=== PATIENT | male | born 1980 | race Two or more races ===

== ENCOUNTER 2018-02-20 14:49 | Emergency (ER) | payer MEDICAID ==
[~2018-02-20] VITALS: Ht 180.3 cm; Wt 102.1 kg
[2018-02-20 16:21] LABS: Basophils # (auto) 0 uL; Basophils % (auto) 0.3 % (0.0-2.0); Eosinophils # (auto) 0.4 uL; Eosinophils % (auto) 3.9 % (0.0-7.0); Hematocrit 50.3 % (41.0-53.0); Hemoglobin 17.1 g/dL (13.5-17.5); Lymphocytes % (auto) 20.3 % (10.0-50.0); Mean Corpuscular Hemoglobin 29.6 pg (28.0-32.0); Monocytes # (auto) 0.7 uL; Monocytes % (auto) 6.8 % (0.0-12.0); Neutrophils # (auto) 6.7 uL; Neutrophils % (auto) 68.7 % (37.0-80.0); Nucleated Red Blood Cells % 0.1 %; Platelet Count (auto) 284 10^3/uL (140-450); Red Blood Cells 5.78 10^6/uL (4.5-5.90); Red Cell Distribution Width 13.5 % (11.8-14.3); White Blood Cell 9.7 10^3/uL (4.4-10.8)
[2018-02-20 16:33] LABS: Albumin 3.6 g/dL (3.4-5.0); Calcium 8.5 mg/dL (8.5-10.1); Potassium 3.4 mmol/L (3.5-5.1)
[2018-02-20 16:36] LABS: BUN/Creatinine Ratio 9.9; Bilirubin, Total 0.3 mg/dL (0.2-1.0); Total Protein 7.8 g/dL (6.4-8.2)
[2018-02-20 19:42] VITALS: BP 130/82
== END 2018-02-20 20:08 | disposition home or self-care (01) ==
LOC: ER 14:57
DX: R11.2 Nausea with vomiting, unspecified (principal); R19.7 Diarrhea, unspecified
CPT/HCPCS: 36415; 80053; 85025

== ENCOUNTER 2018-04-20 09:18 | Emergency (ER) | payer MEDICAID ==
[~2018-04-20] VITALS: Ht 180.3 cm; Wt 95.3 kg
[2018-04-20] MEDS ORDERED: cloNIDine HCL 0.1 MG TAB PO ONE (10:00)
[2018-04-20 10:32] VITALS: BP 166/96
== END 2018-04-20 10:32 | disposition home or self-care (01) ==
LOC: ER 09:18
DX: R04.0 Epistaxis (principal)
CPT/HCPCS: 30901

== ENCOUNTER 2019-08-06 19:29 | Inpatient (IN) | payer MEDICAID ==
[~2019-08-06] VITALS: Ht 180.3 cm; Wt 95.3 kg
[2019-08-06] MEDS ORDERED: cloNIDine HCL 0.1 MG TAB PO ONE (20:15)
[2019-08-06] MEDS ORDERED: ONDANSETRON ODT 4 MG TAB PO ONE (20:30)
[2019-08-06 21:36] LABS: Basophils # (auto) 0 10 ^3/uL (0-0.2); Basophils % (auto) 0.4 % (0.0-2.0); Eosinophils # (auto) 0 10 ^3/uL (0-0.8); Eosinophils % (auto) 0.3 % (0.0-7.0); Hematocrit 48.8 % (41.0-53.0); Hemoglobin 16.6 g/dL (13.5-17.5); Lymphocytes % (auto) 19.1 % (10.0-50.0); Mean Corpuscular Hemoglobin 29.6 pg (28.0-32.0); Mean Corpuscular Volume 87.3 fL (80.0-100.0); Monocytes # (auto) 0.4 10 ^3/uL (0-1.3); Monocytes % (auto) 7.8 % (0.0-12.0); Neutrophils # (auto) 3.9 10 ^3/uL (1.6-8.6); Neutrophils % (auto) 72.4 % (37.0-80.0); Platelet Count (auto) 180 10^3/uL (140-450); Red Blood Cells 5.59 10^6/uL (4.5-5.90); Red Cell Distribution Width 13.3 % (11.8-14.3); White Blood Cell 5.4 10^3/uL (4.4-10.8)
[2019-08-06 21:46] LABS: Albumin 3.4 g/dL (3.4-5.0); Calcium 8.5 mg/dL (8.5-10.1); Potassium 3.6 mmol/L (3.5-5.1)
[2019-08-06 21:47] LABS: BUN/Creatinine Ratio 6.7
[2019-08-06 21:50] LABS: Bilirubin, Total 0.2 mg/dL (0.2-1.0); Total Protein 7.6 g/dL (6.4-8.2)
[2019-08-06] MEDS ORDERED: AZITHROMYCIN 500MG/ 250ML 250 ML IV ONE (22:00)
[2019-08-06] MEDS ORDERED: cefTRIAXone 1GM/50ML D5W 50 ML IV ONE (22:00)
[2019-08-06] MEDS ORDERED: SODIUM CHLORIDE 0.9% 1,000 ML IV ONE (22:15)
[2019-08-06 22:19] LABS: CRP High Sensitivity 4.6 mg/dL (< 0.3)
[2019-08-06 22:52] LABS: INR 1.01 (0.9-1.15); Partial Thromboplastin Time 38.6 sec (23.64-32.05)
[2019-08-06] MEDS ORDERED: ASPirin 81 mg TAB PO ONE (23:15)
[2019-08-07 00:04] LABS: Urine Bacteria FEW /hpf (None Seen); Urine Blood Negative /uL (Negative); Urine Hyaline Cast FEW /lpf (0 - 2); Urine Mucus FEW (None Seen); Urine Specific Gravity 1.023 (1.001-1.035); Urine WBC 3 /hpf (0 - 3)
[2019-08-07 00:23] LABS: Alcohol, Urine < 3.0 mg/dL (0-10); Amphetamine Screen, Urine POSITIVE (NEGATIVE); Barbiturate Scree,Urine NEGATIVE (NEGATIVE); Benzodiazephine Screen, Urine NEGATIVE (NEGATIVE); Cannabinoid Screen, Urine NEGATIVE (NEGATIVE); Cocaine Screen, Urine NEGATIVE (NEGATIVE); Opiate Scree,Urine NEGATIVE (NEGATIVE); Phencyclidine Screen, Urine NEGATIVE (NEGATIVE)
[2019-08-07] MEDS ORDERED: ASPirin 81 mg TAB PO ONE (01:30)
[2019-08-07] MEDS ORDERED: ONDANSETRON HCL 4 MG/2 ML VIAL IV PRN (01:30)
[2019-08-07] MEDS ORDERED: MORPHINE SULF INJ 2 MG/ML SYRINGE 1ML IV PRN ×2 (01:30)
[2019-08-07] MEDS ORDERED: NITROGLYCERIN 0.4 MG SL TAB SL PRN (01:30)
[2019-08-07] MEDS ORDERED: AZITHROMYCIN 500MG/ 250ML 250 ML IV SCH (10:00)
[2019-08-07] MEDS ORDERED: LACTULOSE 20Gm/30ML SOLN PO SCH (10:00)
[2019-08-07 13:00] VITALS: BP 159/102
[2019-08-07 13:10] VITALS: BP 159/102
[2019-08-07 17:11] VITALS: BP 159/104
[2019-08-07] MEDS ORDERED: ACETAMINOPHEN 500 MG TAB PO PRN (17:45)
[2019-08-07] MEDS ORDERED: hydrALAZINE HCL 20 MG/ML VL IV PRN (21:15)
[2019-08-07 22:00] VITALS: BP 144/99
== END 2019-08-08 00:31 | disposition home or self-care (01) | DRG 137 ==
LOC: ER 19:29 → TELE 19:30 → TELE-EAST 08-07 14:41
PROVIDERS: ADMIT Internal Medicine; ATTEND Internal Medicine
DX: U07.1 COVID-19 (principal); J96.01 Acute respiratory failure with hypoxia; J12.89 Other viral pneumonia; I10 Essential (primary) hypertension; K40.20 Bilateral inguinal hernia, without obstruction or gangrene, not specified as recurrent; K59.00 Constipation, unspecified; N20.0 Calculus of kidney; K42.9 Umbilical hernia without obstruction or gangrene; M47.9 Spondylosis, unspecified; F15.10 Other stimulant abuse, uncomplicated; K57.30 Diverticulosis of large intestine without perforation or abscess without bleeding; M40.209 Unspecified kyphosis, site unspecified; M46.90 Unspecified inflammatory spondylopathy, site unspecified; Z87.442 Personal history of urinary calculi
CPT/HCPCS: 36415; 36600; 70450; 71045; 74176; 80053; 80307; 81001; 82150; 82728; 82805; 83605; 83615; 83690; 83735; 83880; 84443; 84484; 85025; 85379; 85610; 85730; 86141; 87070; 87804; 87880; 93005; 93970; 96367; 96368; G0378; J0696; Q0162

== ENCOUNTER 2019-08-09 19:07 | Emergency (ER) | payer MEDICAID ==
[~2019-08-09] VITALS: Ht 180.3 cm; Wt 95.3 kg
[2019-08-09 20:01] VITALS: BP 111/87
== END 2019-08-09 21:32 | disposition left against medical advice (07) ==
LOC: ER 19:07
DX: R53.1 Weakness (principal); Z53.21 Procedure and treatment not carried out due to patient leaving prior to being seen by health care provider

== ENCOUNTER 2020-07-24 00:23 | Emergency (ER) | payer MEDICAID ==
[~2020-07-24] VITALS: Ht 180.3 cm; Wt 95.3 kg
[2020-07-24] MEDS ORDERED: NIFEdipine 10 MG CAP PO ONE (00:45)
[2020-07-24 01:57] LABS: Basophils # (auto) 0.1 10 ^3/uL (0-0.2); Basophils % (auto) 1.1 % (0.0-2.0); Eosinophils # (auto) 0.4 10 ^3/uL (0-0.8); Eosinophils % (auto) 3.8 % (0.0-7.0); Hematocrit 46.1 % (41.0-53.0); Hemoglobin 15.8 g/dL (13.5-17.5); Lymphocytes # (auto) 1.8 10 ^3/uL (0.4-5.4); Lymphocytes % (auto) 17.9 % (10.0-50.0); Mean Corpuscular Hemoglobin 29.8 pg (28.0-32.0); Mean Corpuscular Hgb Conc. 34.2 g/dL (32.0-36.0); Mean Corpuscular Volume 87.3 fL (80.0-100.0); Monocytes # (auto) 0.9 10 ^3/uL (0-1.3); Monocytes % (auto) 9.2 % (0.0-12.0); Neutrophils # (auto) 6.8 10 ^3/uL (1.6-8.6); Nucleated Red Blood Cells % 0.1 %; Platelet Count (auto) 238 10^3/uL (140-450); Red Blood Cells 5.28 10^6/uL (4.5-5.90); Red Cell Distribution Width 14.1 % (11.8-14.3)
[2020-07-24 02:15] LABS: Albumin 4.3 g/dL (3.4-5.0); Anion Gap 7 (5-15); Carbon Dioxide 24 mmol/L (21-32); Chloride 106 mmol/L (98-107); Glucose 104 mg/dL (74-106); Magnesium 2.3 mg/dL (1.6-2.6); Potassium 3.9 mmol/L (3.5-5.1); Sodium 137 mmol/L (136-145)
[2020-07-24] MEDS ORDERED: LORazepam 0.5 MG TAB PO ONE (02:15)
[2020-07-24 02:18] LABS: Alanine Aminotransferase 35 U/L (16-61); Aspartate Aminotransferase 31 U/L (15-37); BUN/Creatinine Ratio 17.5; Bilirubin, Total 0.4 mg/dL (0.2-1.0); Blood Urea Nitrogen 18 mg/dL (7-18); GFR African American 103 mL/min; GFR Non-African American 85 mL/min; Total Protein 8.1 g/dL (6.4-8.2)
[2020-07-24 02:20] LABS: Alkaline Phosphatase 99 U/L (45-117)
[2020-07-24] MEDS ORDERED: cloNIDine HCL 0.1 MG TAB PO ONE (02:30)
[2020-07-24 04:20] VITALS: BP 145/99
== END 2020-07-24 04:23 | disposition home or self-care (01) ==
LOC: ER 00:23
DX: F41.9 Anxiety disorder, unspecified (principal); I10 Essential (primary) hypertension; F15.10 Other stimulant abuse, uncomplicated; R42 Dizziness and giddiness; Z87.442 Personal history of urinary calculi
CPT/HCPCS: 36415; 71045; 80053; 83735; 84484; 85025; 85379; 93005

== ENCOUNTER 2021-09-25 06:29 | Emergency (ER) | payer MEDICAID ==
[~2021-09-25] VITALS: Ht 180.3 cm; Wt 100.0 kg
[2021-09-25 06:55] VITALS: BP 177/127
[2021-09-25] MEDS ORDERED: ASPirin 81 mg TAB PO ONE (07:15)
[2021-09-25 07:42] LABS: Basophils # (auto) 0 10 ^3/uL (0-0.2); Basophils % (auto) 0.7 % (0.0-2.0); Eosinophils # (auto) 0.2 10 ^3/uL (0-0.8); Eosinophils % (auto) 3.3 % (0.0-7.0); Hematocrit 43.2 % (41.0-53.0); Hemoglobin 14.8 g/dL (13.5-17.5); Lymphocytes # (auto) 1.7 10 ^3/uL (0.4-5.4); Lymphocytes % (auto) 24.8 % (10.0-50.0); Mean Corpuscular Hemoglobin 30.2 pg (28.0-32.0); Mean Corpuscular Hgb Conc. 34.2 g/dL (32.0-36.0); Mean Corpuscular Volume 88.4 fL (80.0-100.0); Monocytes # (auto) 0.5 10 ^3/uL (0-1.3); Monocytes % (auto) 7.5 % (0.0-12.0); Neutrophils # (auto) 4.3 10 ^3/uL (1.6-8.6); Neutrophils % (auto) 63.7 % (37.0-80.0); Nucleated Red Blood Cells % 0.1 %; Red Blood Cells 4.89 10^6/uL (4.5-5.90); Red Cell Distribution Width 13.8 % (11.8-14.3); White Blood Cell 6.8 10^3/uL (4.4-10.8)
[2021-09-25 08:20] LABS: Albumin 3.3 g/dL (3.4-5.0); Calcium 8.7 mg/dL (8.5-10.1); Potassium 3.6 mmol/L (3.5-5.1)
[2021-09-25 08:22] LABS: BUN/Creatinine Ratio 17.6
[2021-09-25 08:25] LABS: Bilirubin, Total 0.4 mg/dL (0.2-1.0); Total Protein 6.7 g/dL (6.4-8.2)
[2021-09-25] MEDS ORDERED: cloNIDine HCL 0.1 MG TAB PO ONE (08:45)
[2021-09-25] MEDS ORDERED: IOHEXOL 350 MG/ML 100ML IJ ONE (08:47)
== END 2021-09-25 09:47 | disposition home or self-care (01) ==
LOC: ER 06:29
DX: R07.89 Other chest pain (principal); I10 Essential (primary) hypertension; Z87.442 Personal history of urinary calculi
CPT/HCPCS: 36415; 71045; 80053; 83880; 84484; 85025; 93005; 99285; Q9967

== ENCOUNTER 2021-11-02 06:41 | Emergency (ER) | payer MEDICAID ==
[~2021-11-02] VITALS: Ht 180.3 cm; Wt 100.0 kg
[2021-11-02 07:36] LABS: Basophils # (auto) 0.1 10 ^3/uL (0-0.2); Basophils % (auto) 0.8 % (0.0-2.0); Eosinophils # (auto) 0.2 10 ^3/uL (0-0.8); Eosinophils % (auto) 2.1 % (0.0-7.0); Hematocrit 44.3 % (41.0-53.0); Hemoglobin 14.9 g/dL (13.5-17.5); Lymphocytes # (auto) 2.5 10 ^3/uL (0.4-5.4); Lymphocytes % (auto) 34.1 % (10.0-50.0); Mean Corpuscular Hemoglobin 29.3 pg (28.0-32.0); Mean Corpuscular Hgb Conc. 33.6 g/dL (32.0-36.0); Mean Corpuscular Volume 87.1 fL (80.0-100.0); Monocytes # (auto) 0.6 10 ^3/uL (0-1.3); Monocytes % (auto) 7.7 % (0.0-12.0); Neutrophils % (auto) 55.3 % (37.0-80.0); Nucleated Red Blood Cells % 0.1 %; Red Blood Cells 5.08 10^6/uL (4.5-5.90); Red Cell Distribution Width 14.1 % (11.8-14.3); White Blood Cell 7.3 10^3/uL (4.4-10.8)
[2021-11-02 07:59] LABS: Albumin 3.6 g/dL (3.4-5.0); BUN/Creatinine Ratio 18.3; Calcium 8.9 mg/dL (8.5-10.1); Potassium 4.1 mmol/L (3.5-5.1)
[2021-11-02 08:02] LABS: Bilirubin, Total 0.5 mg/dL (0.2-1.0)
[2021-11-02 09:11] VITALS: BP 150/74
== END 2021-11-02 09:24 | disposition home or self-care (01) ==
LOC: ER 06:41
DX: F41.8 Other specified anxiety disorders (principal); F15.10 Other stimulant abuse, uncomplicated; I10 Essential (primary) hypertension
CPT/HCPCS: 36415; 71045; 80053; 83880; 84484; 85025; 93005

== ENCOUNTER 2021-11-05 09:02 | Inpatient (IN) | payer MEDICAID ==
[~2021-11-05] VITALS: Ht 177.8 cm; Wt 102.9 kg
[2021-11-05] MEDS ORDERED: ASPirin 325 MG TAB PO ONE (09:30)
[2021-11-05 10:19] LABS: Basophils # (auto) 0 10 ^3/uL (0-0.2); Basophils % (auto) 0.6 % (0.0-2.0); Eosinophils # (auto) 0.2 10 ^3/uL (0-0.8); Eosinophils % (auto) 2.2 % (0.0-7.0); Hematocrit 47.4 % (41.0-53.0); Hemoglobin 15.5 g/dL (13.5-17.5); Lymphocytes # (auto) 1.8 10 ^3/uL (0.4-5.4); Lymphocytes % (auto) 21.2 % (10.0-50.0); Mean Corpuscular Hemoglobin 28.8 pg (28.0-32.0); Mean Corpuscular Hgb Conc. 32.8 g/dL (32.0-36.0); Monocytes # (auto) 0.6 10 ^3/uL (0-1.3); Monocytes % (auto) 6.6 % (0.0-12.0); Neutrophils % (auto) 69.4 % (37.0-80.0); Red Blood Cells 5.38 10^6/uL (4.5-5.90); Red Cell Distribution Width 14.4 % (11.8-14.3); White Blood Cell 8.6 10^3/uL (4.4-10.8)
[2021-11-05 10:26] LABS: Albumin 3.7 g/dL (3.4-5.0); Calcium 8.6 mg/dL (8.5-10.1); Potassium 4.2 mmol/L (3.5-5.1)
[2021-11-05 10:29] LABS: BUN/Creatinine Ratio 12.5; Bilirubin, Total 0.4 mg/dL (0.2-1.0)
[2021-11-05] MEDS ORDERED: MORPHINE SULFATE 4 MG/ML SYR/VIAL IV ONE (11:00)
[2021-11-05] MEDS ORDERED: ONDANSETRON HCL 4 MG/2 ML VIAL IV ONE (11:00)
[2021-11-05 11:36] LABS: Urine Bacteria NONE SEEN /hpf (None Seen); Urine Blood Negative /uL (Negative); Urine Hyaline Cast FEW /lpf (0 - 2); Urine Mucus FEW (None Seen); Urine Specific Gravity 1.019 (1.001-1.035); Urine Sperm PRESENT /hpf (None Seen); Urine WBC 9 /hpf (0 - 3)
[2021-11-05 11:37] LABS: Alcohol, Urine < 3.0 mg/dL (0-10); Amphetamine Screen, Urine POSITIVE (NEGATIVE); Barbiturate Scree,Urine NEGATIVE (NEGATIVE); Benzodiazephine Screen, Urine NEGATIVE (NEGATIVE); Cannabinoid Screen, Urine NEGATIVE (NEGATIVE); Cocaine Screen, Urine NEGATIVE (NEGATIVE); Opiate Scree,Urine NEGATIVE (NEGATIVE); Phencyclidine Screen, Urine NEGATIVE (NEGATIVE)
[2021-11-05] MEDS ORDERED: NITROGLYCERIN 0.4 MG SL TAB SL PRN (16:15)
[2021-11-05] MEDS ORDERED: MORPHINE SULFATE INJ 2 MG/ml SYRG IV PRN ×2 (16:15)
[2021-11-06 04:50] LABS: Basophils # (auto) 0.1 10 ^3/uL (0-0.2); Basophils % (auto) 0.6 % (0.0-2.0); Eosinophils # (auto) 0.2 10 ^3/uL (0-0.8); Eosinophils % (auto) 2.2 % (0.0-7.0); Hematocrit 44.1 % (41.0-53.0); Hemoglobin 14.6 g/dL (13.5-17.5); Lymphocytes # (auto) 2.8 10 ^3/uL (0.4-5.4); Lymphocytes % (auto) 30.2 % (10.0-50.0); Mean Corpuscular Hgb Conc. 33.2 g/dL (32.0-36.0); Mean Corpuscular Volume 87.4 fL (80.0-100.0); Monocytes # (auto) 0.8 10 ^3/uL (0-1.3); Neutrophils # (auto) 5.3 10 ^3/uL (1.6-8.6); Nucleated Red Blood Cells % 0.1 %; Red Blood Cells 5.04 10^6/uL (4.5-5.90); Red Cell Distribution Width 14.4 % (11.8-14.3); White Blood Cell 9.1 10^3/uL (4.4-10.8)
[2021-11-06 05:14] LABS: Potassium 4.7 mmol/L (3.5-5.1)
[2021-11-06 05:21] LABS: Albumin 3.3 g/dL (3.4-5.0); BUN/Creatinine Ratio 17.3; Bilirubin, Total 0.4 mg/dL (0.2-1.0); Calcium 8.6 mg/dL (8.5-10.1); Total Protein 6.2 g/dL (6.4-8.2)
[2021-11-06] MEDS: ONDANSETRON HCL 4 MG/2 ML VIAL IV PRN ×2 (08:10→22:30)
[2021-11-06] MEDS ORDERED: IBUP800T26 PO (14:22)
[2021-11-06] MEDS ORDERED: MULT-733 PO (14:22)
[2021-11-06] MEDS ORDERED: DICL1GEL50 TOP (14:22)
[2021-11-06] MEDS ORDERED: BACL20TA PO (14:22)
[2021-11-06] MEDS: HYDROmorphone HCL 2 MG/ML VL/or syr IV PRN (22:23)
[2021-11-06 22:40] VITALS: BP 154/118
[2021-11-06] MEDS ORDERED: hydrALAZINE HCL 20 MG/ML VL IV PRN (23:45)
[2021-11-07 06:04] VITALS: BP 145/107
[2021-11-07 06:58] LABS: Cholesterol 134 mg/dL (< 200); Triglycerides 133 mg/dL (< 150)
[2021-11-07 07:01] LABS: HDL Cholesterol 32 mg/dL (40-59); LDL Cholesterol 92 mg/dL (< 100)
[2021-11-07 08:00] VITALS: BP 168/125
[2021-11-07] MEDS: ONDANSETRON HCL 4 MG/2 ML VIAL IV PRN ×2 (10:20→21:46)
[2021-11-07] MEDS: HYDROmorphone HCL 2 MG/ML VL/or syr IV PRN ×2 (10:21→21:47)
[2021-11-07 12:00] VITALS: BP 125/89
[2021-11-07] MEDS ORDERED: PATIENTS OWN MEDICATION (Baclofen 1 TAB) PO SCH (14:00)
[2021-11-07] MEDS: BACLOFEN 10 MG TAB PO SCH ×2 (14:48→21:45)
[2021-11-07] MEDS: FUROSEMIDE 40 MG/4 ML VIAL IV SCH (14:52)
[2021-11-07] MEDS ORDERED: LISINOPRIL 20 MG TAB PO SCH (15:45)
[2021-11-07 16:00] VITALS: BP 128/87
[2021-11-07] MEDS: AZITHROMYCIN 500MG/ 250ML 250 ML IV SCH (16:30)
[2021-11-07] MEDS: CARVEDILOL 3.125 MG TAB PO SCH ×2 (16:30→21:45)
[2021-11-07] MEDS: SACUBITRIL-VALSARTAN 24mg/26mg TAB PO SCH (21:45)
[2021-11-07 22:00] VITALS: BP 114/86
[2021-11-08] VITALS (7 sets, daily range): BP systolic 125–149; BP diastolic 90–108
[2021-11-08 05:30] LABS: BUN/Creatinine Ratio 18.5; Calcium 8.4 mg/dL (8.5-10.1); Potassium 4.1 mmol/L (3.5-5.1)
[2021-11-08] MEDS: BACLOFEN 10 MG TAB PO SCH ×3 (05:43→21:59)
[2021-11-08 09:58] LABS: INR 1.13 (0.9-1.15); Partial Thromboplastin Time 29.6 sec (24.6-33.4)
[2021-11-08] MEDS: SACUBITRIL-VALSARTAN 24mg/26mg TAB PO SCH ×2 (10:36→21:58)
[2021-11-08] MEDS: MULTIPLE VITAMINS W/ MINERALS TAB PO SCH (10:36)
[2021-11-08] MEDS: FUROSEMIDE 40 MG/4 ML VIAL IV SCH (10:37)
[2021-11-08] MEDS: AZITHROMYCIN 500MG/ 250ML 250 ML IV SCH (10:37)
[2021-11-08] MEDS ORDERED: VERAPAMIL 2.5MG/ML INJ 2ML VIAL IV ONE (14:50)
[2021-11-08] MEDS ORDERED: ANGIOMAX 250 MG VIAL IV ONE (14:50)
[2021-11-08] MEDS ORDERED: HEPARIN SODIUM (PORCINE) 5000 UNITS/ML 1ML VIAL ONE (14:50)
[2021-11-08] MEDS ORDERED: fentaNYL CITRATE 100 MCG/2 ML VL ONE (14:50)
[2021-11-08] MEDS ORDERED: MIDAZOLAM HCL 2MG/2ML 2ml VIAL (1mg/ml) ONE (14:50)
[2021-11-08] MEDS ORDERED: SODIUM CHL 0.9% 0 ML ONE (14:51)
[2021-11-08] MEDS ORDERED: LIDOCAINE 2%HCL (LOCAL ANESTH.) INJ 20ML MDV ONE (14:51)
[2021-11-08] MEDS ORDERED: IODIXANOL 320MG/ML 100ML BTL IV ONE ×2 (14:51→15:13)
[2021-11-09 05:00] VITALS: BP 148/112
[2021-11-09] MEDS: BACLOFEN 10 MG TAB PO SCH ×3 (05:29→23:01)
[2021-11-09] MEDS: AZITHROMYCIN 500MG/ 250ML 250 ML IV SCH (08:45)
[2021-11-09] MEDS: FUROSEMIDE 40 MG/4 ML VIAL IV SCH (08:45)
[2021-11-09] MEDS: MULTIPLE VITAMINS W/ MINERALS TAB PO SCH (08:46)
[2021-11-09] MEDS: CARVEDILOL 3.125 MG TAB PO SCH ×2 (08:47→23:02)
[2021-11-09] MEDS: SPIRONOLACTONE 25 MG TAB PO SCH (08:48)
[2021-11-09] MEDS: SACUBITRIL-VALSARTAN 24mg/26mg TAB PO SCH ×2 (08:48→23:00)
[2021-11-09 09:00] VITALS: BP 124/88
[2021-11-09 13:00] VITALS: BP 129/90
[2021-11-09] MEDS ORDERED: CAR3125T PO (15:42)
[2021-11-09] MEDS ORDERED: FURO40TA4 PO (15:42)
[2021-11-09] MEDS ORDERED: SACU1TAB PO (15:42)
[2021-11-09] MEDS ORDERED: SPIR25TA PO (15:42)
[2021-11-09] MEDS ORDERED: EMPA1TAB PO (15:56)
[2021-11-09 17:00] VITALS: BP 138/96
[2021-11-09 22:05] VITALS: BP 129/100
[2021-11-10 04:54] VITALS: BP 135/102
[2021-11-10] MEDS: BACLOFEN 10 MG TAB PO SCH ×2 (06:35→14:03)
[2021-11-10] MEDS: AZITHROMYCIN 500MG/ 250ML 250 ML IV SCH (08:55)
[2021-11-10] MEDS: FUROSEMIDE 40 MG/4 ML VIAL IV SCH (08:55)
[2021-11-10] MEDS: MULTIPLE VITAMINS W/ MINERALS TAB PO SCH (08:56)
[2021-11-10] MEDS: SPIRONOLACTONE 25 MG TAB PO SCH (08:56)
[2021-11-10] MEDS: CARVEDILOL 3.125 MG TAB PO SCH (08:56)
[2021-11-10 09:05] VITALS: BP 146/108
[2021-11-10] MEDS: SACUBITRIL-VALSARTAN 24mg/26mg TAB PO SCH (09:10)
[2021-11-10 12:27] VITALS: BP 121/80
[2021-11-10] MEDS ORDERED: ALPRAZolam 0.5 MG TAB PO PRN (13:00)
[2021-11-10 15:17] VITALS: BP 121/80
[2021-11-10 17:15] VITALS: BP 139/91
== END 2021-11-10 18:47 | disposition home health service (06) | DRG 191 ==
LOC: ER 09:02 → TELE 16:16 → TELE-WESTW 11-06 21:39
PROVIDERS: ADMIT Internal Medicine; ATTEND Internal Medicine
PROC: 4A023N7 Measurement of Cardiac Sampling and Pressure, Left Heart, Percutaneous Approach (ICD-10-PCS; principal; 2021-11-08)
PROC: B211YZZ Fluoroscopy of Multiple Coronary Arteries using Other Contrast (ICD-10-PCS; 2021-11-08)
PROC: B215YZZ Fluoroscopy of Left Heart using Other Contrast (ICD-10-PCS; 2021-11-08)
DX: I25.5 Ischemic cardiomyopathy (principal); I50.23 Acute on chronic systolic (congestive) heart failure; K74.60 Unspecified cirrhosis of liver; I11.0 Hypertensive heart disease with heart failure; E66.9 Obesity, unspecified; I16.1 Hypertensive emergency; F41.9 Anxiety disorder, unspecified; Z20.822 Contact with and (suspected) exposure to COVID-19; I25.10 Atherosclerotic heart disease of native coronary artery without angina pectoris; F15.10 Other stimulant abuse, uncomplicated; Z87.442 Personal history of urinary calculi; Z68.34 Body mass index [BMI] 34.0-34.9, adult; Z87.891 Personal history of nicotine dependence
CPT/HCPCS: 36415; 71046; 80048; 80053; 80061; 80307; 81001; 83880; 84484; 85025; 85610; 85730; 93005; 93306; 93458; 96374; 96375; 99152; G0378; J2250; J2405; Q9967

== ENCOUNTER 2022-02-03 06:10 | Emergency (ER) | payer MEDICAID ==
[~2022-02-03] VITALS: Ht 180.3 cm; Wt 105.0 kg
[~2022-02-03 06:10] MED LIST: BACL20TA PO; CAR3125T PO; DICL1GEL50 TOP; EMPA1TAB PO; FURO40TA4 PO; MULT-733 PO; SACU1TAB PO; SPIR25TA PO
[2022-02-03 06:46] LABS: Basophils # (auto) 0 10 ^3/uL (0-0.2); Basophils % (auto) 0.6 % (0.0-2.0); Eosinophils # (auto) 0.2 10 ^3/uL (0-0.8); Eosinophils % (auto) 3.4 % (0.0-7.0); Hematocrit 47.7 % (41.0-53.0); Hemoglobin 16.6 g/dL (13.5-17.5); Lymphocytes # (auto) 2.6 10 ^3/uL (0.4-5.4); Lymphocytes % (auto) 38.4 % (10.0-50.0); Mean Corpuscular Hemoglobin 30.6 pg (28.0-32.0); Mean Corpuscular Hgb Conc. 34.9 g/dL (32.0-36.0); Mean Corpuscular Volume 87.8 fL (80.0-100.0); Monocytes # (auto) 0.6 10 ^3/uL (0-1.3); Monocytes % (auto) 8.7 % (0.0-12.0); Neutrophils # (auto) 3.3 10 ^3/uL (1.6-8.6); Neutrophils % (auto) 48.9 % (37.0-80.0); Nucleated Red Blood Cells % 0.2 %; Red Blood Cells 5.43 10^6/uL (4.5-5.90); Red Cell Distribution Width 15.1 % (11.8-14.3); White Blood Cell 6.8 10^3/uL (4.4-10.8)
[2022-02-03 07:12] LABS: Albumin 4.2 g/dL (3.4-5.0); BUN/Creatinine Ratio 16.4; Calcium 9.3 mg/dL (8.5-10.1)
[2022-02-03 07:15] LABS: Bilirubin, Total 0.4 mg/dL (0.2-1.0); Total Protein 7.9 g/dL (6.4-8.2)
[2022-02-03] MEDS ORDERED: ONDANSETRON HCL 4 MG/2 ML VIAL IV ONE (09:45)
[2022-02-03] MEDS: MORPHINE SULFATE 4 MG/ML SYR/VIAL IV ONE ×2 (09:56→10:08)
[2022-02-03 10:38] VITALS: BP 120/62
[2022-02-03] MEDS ORDERED: CYCL-837 PO (11:05)
[2022-02-03] MEDS ORDERED: DICL50TA2 PO (11:05)
[2022-02-03] MEDS ORDERED: TRAM50TA2 PO (11:05)
[2022-02-03 11:22] LABS: Urine Bacteria NONE SEEN /hpf (None Seen); Urine Blood Negative /uL (Negative); Urine Specific Gravity 1.018 (1.001-1.035); Urine WBC 1 /hpf (0 - 3)
== END 2022-02-03 12:03 | disposition home or self-care (01) ==
LOC: ER 06:12
DX: M47.816 Spondylosis without myelopathy or radiculopathy, lumbar region (principal); I42.8 Other cardiomyopathies; I10 Essential (primary) hypertension; Z87.442 Personal history of urinary calculi; Z20.822 Contact with and (suspected) exposure to COVID-19
CPT/HCPCS: 36415; 71045; 72100; 80053; 81001; 83880; 84484; 85025; 87426; 93005; 96374; 96375; 99285; J2270; J2405

== ENCOUNTER 2022-03-01 16:43 | Emergency (ER) | payer MEDICAID ==
[~2022-03-01] VITALS: Ht 180.3 cm; Wt 104.4 kg
[~2022-03-01 16:43] MED LIST changes: +CYCL-837 PO; +DICL50TA2 PO; +TRAM50TA2 PO
[2022-03-01 17:00] VITALS: BP 141/106
[2022-03-01 18:03] LABS: Urine Bacteria NONE SEEN /hpf (None Seen); Urine Blood Negative /uL (Negative); Urine Specific Gravity 1.007 (1.001-1.035); Urine WBC <1 /hpf (0 - 3)
[2022-03-01 18:32] LABS: Basophils # (auto) 0 10 ^3/uL (0-0.2); Basophils % (auto) 0.4 % (0.0-2.0); Eosinophils # (auto) 0.2 10 ^3/uL (0-0.8); Eosinophils % (auto) 2.9 % (0.0-7.0); Hematocrit 49.7 % (41.0-53.0); Hemoglobin 16.6 g/dL (13.5-17.5); Lymphocytes # (auto) 2.2 10 ^3/uL (0.4-5.4); Lymphocytes % (auto) 35.2 % (10.0-50.0); Mean Corpuscular Hgb Conc. 33.4 g/dL (32.0-36.0); Mean Corpuscular Volume 89.7 fL (80.0-100.0); Monocytes # (auto) 0.4 10 ^3/uL (0-1.3); Neutrophils # (auto) 3.5 10 ^3/uL (1.6-8.6); Neutrophils % (auto) 54.5 % (37.0-80.0); Nucleated Red Blood Cells % 0.2 %; Red Blood Cells 5.54 10^6/uL (4.5-5.90); Red Cell Distribution Width 14.9 % (11.8-14.3); White Blood Cell 6.4 10^3/uL (4.4-10.8)
[2022-03-01 18:40] LABS: Albumin 3.9 g/dL (3.4-5.0); Calcium 9.3 mg/dL (8.5-10.1); Potassium 3.9 mmol/L (3.5-5.1)
[2022-03-01 18:42] LABS: BUN/Creatinine Ratio 16.7
[2022-03-01 19:01] LABS: Bilirubin, Total 0.4 mg/dL (0.2-1.0); Total Protein 7.3 g/dL (6.4-8.2)
== END 2022-03-01 20:14 | disposition home or self-care (01) ==
LOC: ER 16:43
DX: R42 Dizziness and giddiness (principal); F15.10 Other stimulant abuse, uncomplicated; I42.8 Other cardiomyopathies; I11.0 Hypertensive heart disease with heart failure; I50.9 Heart failure, unspecified; Z87.442 Personal history of urinary calculi
CPT/HCPCS: 36415; 80053; 81001; 82962; 84484; 85025; 93005

== ENCOUNTER 2022-03-18 13:31 | Emergency (ER) | payer MEDICAID ==
[~2022-03-18] VITALS: Ht 180.3 cm; Wt 95.0 kg
[2022-03-18 13:40] VITALS: BP 120/73
[2022-03-18 14:15] LABS: Basophils # (auto) 0 10 ^3/uL (0-0.2); Basophils % (auto) 0.7 % (0.0-2.0); Eosinophils # (auto) 0.4 10 ^3/uL (0-0.8); Eosinophils % (auto) 5.1 % (0.0-7.0); Hematocrit 49.2 % (41.0-53.0); Hemoglobin 16.7 g/dL (13.5-17.5); Lymphocytes % (auto) 27.9 % (10.0-50.0); Mean Corpuscular Hemoglobin 30.9 pg (28.0-32.0); Mean Corpuscular Hgb Conc. 33.9 g/dL (32.0-36.0); Monocytes # (auto) 0.6 10 ^3/uL (0-1.3); Monocytes % (auto) 8.1 % (0.0-12.0); Neutrophils # (auto) 4.2 10 ^3/uL (1.6-8.6); Neutrophils % (auto) 58.2 % (37.0-80.0); Nucleated Red Blood Cells % 0.2 %; Red Cell Distribution Width 13.7 % (11.8-14.3); White Blood Cell 7.1 10^3/uL (4.4-10.8)
[2022-03-18 14:28] LABS: Albumin 3.8 g/dL (3.4-5.0); BUN/Creatinine Ratio 18.5; Calcium 9.2 mg/dL (8.5-10.1); Potassium 4.2 mmol/L (3.5-5.1)
[2022-03-18 14:31] LABS: Bilirubin, Total 0.4 mg/dL (0.2-1.0); Total Protein 7.5 g/dL (6.4-8.2)
[2022-03-18] MEDS ORDERED: LORazepam 0.5 MG TAB PO ONE (19:45)
== END 2022-03-18 23:18 | disposition home or self-care (01) ==
LOC: ER 13:31
DX: R07.89 Other chest pain (principal); F41.9 Anxiety disorder, unspecified; F15.10 Other stimulant abuse, uncomplicated; I10 Essential (primary) hypertension; Z87.442 Personal history of urinary calculi; Z88.6 Allergy status to analgesic agent
CPT/HCPCS: 36415; 71046; 80053; 83880; 84484; 85025; 93005

== ENCOUNTER 2022-07-02 03:14 | Emergency (ER) | payer MEDICAID ==
[~2022-07-02] VITALS: Ht 180.3 cm; Wt 90.9 kg
[2022-07-02 03:16] VITALS: BP 149/109
[2022-07-02 04:04] LABS: Basophils # (auto) 0 10 ^3/uL (0-0.2); Basophils % (auto) 0.6 % (0.0-2.0); Eosinophils # (auto) 0.3 10 ^3/uL (0-0.8); Eosinophils % (auto) 3.7 % (0.0-7.0); Hematocrit 47.2 % (41.0-53.0); Hemoglobin 15.9 g/dL (13.5-17.5); Lymphocytes # (auto) 3.1 10 ^3/uL (0.4-5.4); Lymphocytes % (auto) 43.4 % (10.0-50.0); Mean Corpuscular Hemoglobin 30.5 pg (28.0-32.0); Mean Corpuscular Hgb Conc. 33.8 g/dL (32.0-36.0); Mean Corpuscular Volume 90.3 fL (80.0-100.0); Monocytes # (auto) 0.5 10 ^3/uL (0-1.3); Monocytes % (auto) 6.7 % (0.0-12.0); Neutrophils # (auto) 3.2 10 ^3/uL (1.6-8.6); Neutrophils % (auto) 45.6 % (37.0-80.0); Nucleated Red Blood Cells % 0.2 %; Red Blood Cells 5.22 10^6/uL (4.5-5.90); Red Cell Distribution Width 13.6 % (11.8-14.3); White Blood Cell 7.1 10^3/uL (4.4-10.8)
[2022-07-02 04:15] LABS: INR 0.97 (0.9-1.15); Partial Thromboplastin Time 31.7 sec (24.6-33.4)
[2022-07-02 04:18] LABS: Albumin 3.5 g/dL (3.4-5.0); Calcium 8.3 mg/dL (8.5-10.1); Magnesium 2.3 mg/dL (1.6-2.6); Potassium 3.8 mmol/L (3.5-5.1)
[2022-07-02 04:21] LABS: BUN/Creatinine Ratio 17.5 (10.0-20.0); Bilirubin, Total 0.2 mg/dL (0.2-1.0); Total Protein 7.1 g/dL (6.4-8.2)
[2022-07-02] MEDS ORDERED: KETOROLAC TROMETH 30 MG/ML 1ML VIAL IM ONE (08:00)
== END 2022-07-02 04:16 | disposition left against medical advice (07) ==
LOC: ER 03:14
DX: R07.89 Other chest pain (principal); F15.10 Other stimulant abuse, uncomplicated; I11.0 Hypertensive heart disease with heart failure; I50.9 Heart failure, unspecified; Z79.899 Other long term (current) drug therapy
CPT/HCPCS: 36415; 71045; 80053; 83735; 83880; 84484; 85025; 85610; 85730; 93005

== ENCOUNTER 2022-07-08 07:57 | Inpatient (IN) | payer MEDICAID ==
[~2022-07-08] VITALS: Ht 180.3 cm; Wt 104.2 kg
[~2022-07-08 07:57] MED LIST changes: -DICL1GEL50 TOP; +DICL1GEL73 TOP
[2022-07-08] MEDS ORDERED: ONDANSETRON HCL 4 MG/2 ML VIAL IV ONE (08:30)
[2022-07-08] MEDS ORDERED: ASPirin 81 mg TAB PO ONE (08:30)
[2022-07-08] MEDS: MORPHINE SULFATE INJ 2 MG/ml SYRG IV ONE ×2 (08:30→08:39)
[2022-07-08 09:08] LABS: Basophils # (auto) 0 10 ^3/uL (0-0.2); Basophils % (auto) 0.5 % (0.0-2.0); Eosinophils # (auto) 0.3 10 ^3/uL (0-0.8); Eosinophils % (auto) 3.6 % (0.0-7.0); Hematocrit 48.9 % (41.0-53.0); Hemoglobin 16.5 g/dL (13.5-17.5); Lymphocytes # (auto) 2.6 10 ^3/uL (0.4-5.4); Lymphocytes % (auto) 32.8 % (10.0-50.0); Mean Corpuscular Hemoglobin 30.5 pg (28.0-32.0); Mean Corpuscular Hgb Conc. 33.7 g/dL (32.0-36.0); Mean Corpuscular Volume 90.5 fL (80.0-100.0); Monocytes # (auto) 0.8 10 ^3/uL (0-1.3); Monocytes % (auto) 10.1 % (0.0-12.0); Neutrophils # (auto) 4.2 10 ^3/uL (1.6-8.6); Nucleated Red Blood Cells % 0.1 %; Red Cell Distribution Width 13.8 % (11.8-14.3); White Blood Cell 7.9 10^3/uL (4.4-10.8)
[2022-07-08] MEDS ORDERED: IOHEXOL 350 MG/ML 100ML IJ ONE (10:31)
[2022-07-08] MEDS ORDERED: TEMAZEPAM 15 MG CAP PO PRN (11:45)
[2022-07-08] MEDS ORDERED: HYDROcodone-ACET 5/325MG TAB PO PRN (11:45)
[2022-07-08] MEDS ORDERED: NITROGLYCERIN 0.4 MG SL TAB SL PRN (11:45)
[2022-07-08] MEDS ORDERED: ACETAMINOPHEN 325 MG TAB PO PRN (11:45)
[2022-07-08] MEDS ORDERED: MORPHINE SULFATE INJ 2 MG/ml SYRG IV PRN ×2 (11:45)
[2022-07-08] MEDS ORDERED: ONDANSETRON HCL 4 MG/2 ML VIAL IV PRN (11:45)
[2022-07-08] MEDS ORDERED: DOCUSATE SOD 100 MG CAP PO PRN (11:45)
[2022-07-08] MEDS: ENOXAPARIN SOD 40 MG/0.4 ML SYRINGE SC SCH (13:11)
[2022-07-08 13:50] LABS: Urine Bacteria NONE SEEN /hpf (None Seen); Urine Blood Negative /uL (Negative); Urine WBC 1 /hpf (0 - 3)
[2022-07-08 13:56] LABS: Albumin 3.7 g/dL (3.4-5.0); Calcium 8.6 mg/dL (8.5-10.1); Magnesium 2.6 mg/dL (1.6-2.6); Potassium 4.1 mmol/L (3.5-5.1)
[2022-07-08 14:00] LABS: BUN/Creatinine Ratio 13.9 (10.0-20.0); Bilirubin, Total 0.4 mg/dL (0.2-1.0); Total Protein 7.5 g/dL (6.4-8.2)
[2022-07-08 14:10] LABS: Alcohol, Urine < 3.0 mg/dL (0-10); Amphetamine Screen, Urine POSITIVE (NEGATIVE); Barbiturate Scree,Urine NEGATIVE (NEGATIVE); Benzodiazephine Screen, Urine NEGATIVE (NEGATIVE); Cannabinoid Screen, Urine NEGATIVE (NEGATIVE); Cocaine Screen, Urine NEGATIVE (NEGATIVE); Opiate Scree,Urine NEGATIVE (NEGATIVE); Phencyclidine Screen, Urine NEGATIVE (NEGATIVE)
[2022-07-08 16:36] VITALS: BP 134/97
[2022-07-08 16:38] VITALS: BP 134/92
[2022-07-08 17:00] VITALS: BP 134/92
[2022-07-08] MEDS: SACUBITRIL-VALSARTAN 24mg/26mg TAB PO SCH (21:15)
[2022-07-08] MEDS: CARVEDILOL 3.125 MG TAB PO SCH (21:16)
[2022-07-08 22:00] VITALS: BP 136/88
[2022-07-09 05:00] VITALS: BP 126/80
[2022-07-09 06:22] LABS: Basophils # (auto) 0 10 ^3/uL (0-0.2); Basophils % (auto) 0.6 % (0.0-2.0); Eosinophils # (auto) 0.4 10 ^3/uL (0-0.8); Eosinophils % (auto) 5.5 % (0.0-7.0); Hematocrit 47.9 % (41.0-53.0); Hemoglobin 16.2 g/dL (13.5-17.5); Lymphocytes % (auto) 39.1 % (10.0-50.0); Mean Corpuscular Hemoglobin 30.7 pg (28.0-32.0); Mean Corpuscular Hgb Conc. 33.9 g/dL (32.0-36.0); Mean Corpuscular Volume 90.5 fL (80.0-100.0); Monocytes # (auto) 0.8 10 ^3/uL (0-1.3); Monocytes % (auto) 10.5 % (0.0-12.0); Neutrophils # (auto) 3.4 10 ^3/uL (1.6-8.6); Neutrophils % (auto) 44.3 % (37.0-80.0); Nucleated Red Blood Cells % 0.6 %; Red Blood Cells 5.29 10^6/uL (4.5-5.90); Red Cell Distribution Width 13.6 % (11.8-14.3); White Blood Cell 7.7 10^3/uL (4.4-10.8)
[2022-07-09 09:00] VITALS: BP 138/84
[2022-07-09] MEDS: SACUBITRIL-VALSARTAN 24mg/26mg TAB PO SCH (09:42)
[2022-07-09] MEDS: CARVEDILOL 3.125 MG TAB PO SCH (09:44)
[2022-07-09] MEDS: ENOXAPARIN SOD 40 MG/0.4 ML SYRINGE SC SCH (09:45)
[2022-07-09] MEDS ORDERED: SPIRONOLACTONE 25 MG TAB PO SCH (10:00)
[2022-07-09 12:35] VITALS: BP 149/78
[2022-07-09 13:00] VITALS: BP 142/91
== END 2022-07-09 14:30 | disposition home or self-care (01) | DRG 205 ==
LOC: ER 07:57 → TELE 11:46 → TELE-CENTR 16:15
PROVIDERS: ADMIT Nurse Practitioner; ATTEND Nurse Practitioner
DX: I42.9 Cardiomyopathy, unspecified (principal); I50.23 Acute on chronic systolic (congestive) heart failure; F15.10 Other stimulant abuse, uncomplicated; I11.0 Hypertensive heart disease with heart failure; R07.9 Chest pain, unspecified; K80.20 Calculus of gallbladder without cholecystitis without obstruction; Z79.899 Other long term (current) drug therapy; Z87.442 Personal history of urinary calculi
CPT/HCPCS: 36415; 71045; 71275; 80053; 80307; 81001; 83735; 83880; 84484; 85025; 85379; 93005; 96374; G0378; J2405

== ENCOUNTER 2022-10-11 05:56 | Emergency (ER) | payer MEDICAID ==
[~2022-10-11] VITALS: Ht 180.3 cm; Wt 104.4 kg
[2022-10-11] MEDS ORDERED: MECLIZINE HCL 25 MG TAB PO ONE (06:45)
[2022-10-11] MEDS ORDERED: ONDANSETRON ODT 4 MG TAB PO ONE (06:45)
[2022-10-11 07:30] LABS: Basophils # (auto) 0.1 10 ^3/uL (0-0.2); Basophils % (auto) 0.6 % (0.0-2.0); Eosinophils # (auto) 0.2 10 ^3/uL (0-0.8); Eosinophils % (auto) 2.8 % (0.0-7.0); Hematocrit 44.1 % (41.0-53.0); Hemoglobin 15.1 g/dL (13.5-17.5); Lymphocytes % (auto) 25.9 % (10.0-50.0); Mean Corpuscular Hemoglobin 30.3 pg (28.0-32.0); Mean Corpuscular Hgb Conc. 34.3 g/dL (32.0-36.0); Mean Corpuscular Volume 88.6 fL (80.0-100.0); Monocytes # (auto) 0.7 10 ^3/uL (0-1.3); Monocytes % (auto) 8.5 % (0.0-12.0); Neutrophils # (auto) 4.9 10 ^3/uL (1.6-8.6); Neutrophils % (auto) 62.2 % (37.0-80.0); Nucleated Red Blood Cells % 0.1 %; Red Blood Cells 4.98 10^6/uL (4.5-5.90); Red Cell Distribution Width 13.4 % (11.8-14.3); White Blood Cell 7.8 10^3/uL (4.4-10.8)
[2022-10-11 07:34] LABS: INR 1.04 (0.9-1.15); Partial Thromboplastin Time 31.6 SEC (24.5-34.5); Prothrombin Time 10.9 sec (9.3-11.8)
[2022-10-11 07:41] VITALS: BP 146/103; PULSE 64; RESP 16; TEMP 98.6; O2SAT 96
[2022-10-11 08:02] LABS: Alanine Aminotransferase 22 U/L (7-40); Albumin 4.1 g/dL (3.2-4.8); Alkaline Phosphatase 84 U/L (46-116); Anion Gap 4.2 (5-15); Aspartate Aminotransferase 15 U/L (13-40); BUN/Creatinine Ratio 12.5 (10.0-20.0); Blood Urea Nitrogen 13 mg/dL (9-23); Calcium 9.4 mg/dL (8.7-10.4); Carbon Dioxide 28.8 mmol/L (20-30); Chloride 106 mmol/L (98-107); Glucose 116 mg/dL (74-106); Potassium 3.6 mmol/L (3.5-5.1); Sodium 139 mmol/L (136-145)
[2022-10-11 08:03] LABS: Bilirubin, Total 0.5 mg/dL (0.2-1.0); Total Protein 6.6 g/dL (5.7-8.2)
[2022-10-11] MEDS ORDERED: FUR20T GT (08:30)
[2022-10-11] MEDS ORDERED: SACU1TAB PO (08:30)
[2022-10-11] MEDS ORDERED: ZOFR4T PO (08:30)
[2022-10-11] MEDS ORDERED: EMPA1TAB PO (08:30)
[2022-10-11] MEDS ORDERED: SPIR25TA8 PO (08:30)
[2022-10-11] MEDS ORDERED: MECL1TAB31 PO (08:30)
[2022-10-11] MEDS ORDERED: CARV3.1240 PO (08:30)
== END 2022-10-11 08:39 | disposition home or self-care (01) ==
LOC: ER 05:56
DX: R42 Dizziness and giddiness (principal); I11.0 Hypertensive heart disease with heart failure; I50.9 Heart failure, unspecified; E11.9 Type 2 diabetes mellitus without complications
CPT/HCPCS: 36415; 70450; 80053; 84484; 85025; 85610; 85730; 99284; J8597; Q0162

== ENCOUNTER 2022-12-16 08:15 | Inpatient (IN) | payer MEDICAID ==
[~2022-12-16] VITALS: Ht 180.3 cm; Wt 93.5 kg
[~2022-12-16 08:15] MED LIST changes: +CARV3.1240 PO; +FUR20T GT; +MECL1TAB31 PO; +SPIR25TA8 PO; +ZOFR4T PO
[2022-12-16 09:20] LABS: Urine Bacteria NONE SEEN /hpf (None Seen); Urine Blood Negative /uL (Negative); Urine Clarity Clear (Clear); Urine Mucus FEW (None Seen); Urine Protein, UAD Negative (Negative); Urine Specific Gravity 1.012 (1.001-1.035); Urine Urobilinogen Normal (Negative); Urine WBC 1 /hpf (0 - 3)
[2022-12-16 09:22] LABS: Basophils # (auto) 0.1 10 ^3/uL (0-0.2); Basophils % (auto) 0.7 % (0.0-2.0); Eosinophils # (auto) 0.1 10 ^3/uL (0-0.8); Eosinophils % (auto) 1.1 % (0.0-7.0); Hematocrit 45.6 % (41.0-53.0); Lymphocytes # (auto) 1.9 10 ^3/uL (0.4-5.4); Mean Corpuscular Hemoglobin 30.1 pg (28.0-32.0); Mean Corpuscular Hgb Conc. 32.9 g/dL (32.0-36.0); Mean Corpuscular Volume 91.4 fL (80.0-100.0); Monocytes # (auto) 0.5 10 ^3/uL (0-1.3); Monocytes % (auto) 7.2 % (0.0-12.0); Neutrophils # (auto) 4.8 10 ^3/uL (1.6-8.6); Nucleated Red Blood Cells % 0.1 %; Red Blood Cells 4.98 10^6/uL (4.5-5.90); Red Cell Distribution Width 14.7 % (11.8-14.3); White Blood Cell 7.4 10^3/uL (4.4-10.8)
[2022-12-16 09:27] LABS: Urine Color Yellow (Yellow)
[2022-12-16 09:38] LABS: Alanine Aminotransferase 39 U/L (7-40); Alkaline Phosphatase 91 U/L (46-116); Anion Gap 6 (5-15); Aspartate Aminotransferase 36 U/L (13-40); BUN/Creatinine Ratio 11.9 (10.0-20.0); Bilirubin, Total 0.6 mg/dL (0.2-1.0); Blood Urea Nitrogen 16 mg/dL (9-23); Carbon Dioxide 29 mmol/L (20-30); Chloride 107 mmol/L (98-107); Glucose 91 mg/dL (74-106); Potassium 4.3 mmol/L (3.5-5.1); Sodium 142 mmol/L (136-145)
[2022-12-16 09:39] LABS: Total Protein 6.5 g/dL (5.7-8.2)
[2022-12-16] MEDS ORDERED: ENOXAPARIN SOD 120 MG/0.8 ML SYRINGE SC ONE (10:45)
[2022-12-16] MEDS ORDERED: IOHEXOL 350 MG/ML 100ML IJ ONE (10:57)
[2022-12-16] MEDS ORDERED: ONDANSETRON HCL 4 MG/2 ML VIAL IV PRN (13:15)
[2022-12-16] MEDS ORDERED: NITROGLYCERIN 0.4 MG SL TAB SL PRN (13:15)
[2022-12-16] MEDS ORDERED: MORPHINE SULFATE INJ 2 MG/ml SYRG IV PRN (13:15)
[2022-12-16] MEDS ORDERED: DOCUSATE SOD 100 MG CAP PO PRN (13:15)
[2022-12-16] MEDS ORDERED: ACETAMINOPHEN 325 MG TAB PO PRN (13:15)
[2022-12-16] MEDS ORDERED: TEMAZEPAM 15 MG CAP PO PRN (13:15)
[2022-12-16] MEDS ORDERED: HYDROcodone-ACET 5/325MG TAB PO PRN (13:15)
[2022-12-16 17:48] VITALS: PULSE 54; RESP 19; O2SAT 96
[2022-12-16] MEDS: hydrALAZINE HCL 20 MG/ML VL IV PRN (18:06)
[2022-12-16 21:44] VITALS: PULSE 105; RESP 23; O2SAT 96
[2022-12-17] VITALS (8 sets, daily range): BP systolic 132–160; BP diastolic 90–118; PULSE 62–108; RESP 18–22; TEMP 97.2–98; O2SAT 94–98
[2022-12-17 04:52] LABS: Basophils # (auto) 0 10 ^3/uL (0-0.2); Basophils % (auto) 0.4 % (0.0-2.0); Eosinophils # (auto) 0.2 10 ^3/uL (0-0.8); Eosinophils % (auto) 2.6 % (0.0-7.0); Hematocrit 45.1 % (41.0-53.0); Hemoglobin 15.1 g/dL (13.5-17.5); Lymphocytes # (auto) 2.1 10 ^3/uL (0.4-5.4); Lymphocytes % (auto) 28.3 % (10.0-50.0); Mean Corpuscular Hemoglobin 30.5 pg (28.0-32.0); Mean Corpuscular Hgb Conc. 33.4 g/dL (32.0-36.0); Mean Corpuscular Volume 91.2 fL (80.0-100.0); Monocytes # (auto) 0.6 10 ^3/uL (0-1.3); Monocytes % (auto) 7.5 % (0.0-12.0); Neutrophils # (auto) 4.5 10 ^3/uL (1.6-8.6); Neutrophils % (auto) 61.2 % (37.0-80.0); Nucleated Red Blood Cells % 0.1 %; Red Blood Cells 4.94 10^6/uL (4.5-5.90); Red Cell Distribution Width 14.3 % (11.8-14.3); White Blood Cell 7.4 10^3/uL (4.4-10.8)
[2022-12-17 05:11] LABS: Alanine Aminotransferase 39 U/L (7-40); Albumin 3.9 g/dL (3.2-4.8); Alkaline Phosphatase 85 U/L (46-116); Anion Gap 7 (5-15); Aspartate Aminotransferase 32 U/L (13-40); BUN/Creatinine Ratio 13.1 (10.0-20.0); Blood Urea Nitrogen 14 mg/dL (9-23); Calcium 9.2 mg/dL (8.5-10.1); Carbon Dioxide 25 mmol/L (20-30); Chloride 107 mmol/L (98-107); Glucose 128 mg/dL (74-106); Sodium 139 mmol/L (136-145)
[2022-12-17 05:12] LABS: Bilirubin, Total 0.6 mg/dL (0.2-1.0); Total Protein 6.4 g/dL (5.7-8.2)
[2022-12-17] MEDS ORDERED: FUROSEMIDE 40 MG/4 ML VIAL IV ONE (09:45)
[2022-12-17] MEDS: ENOXAPARIN SOD 40 MG/0.4 ML SYRINGE SC SCH (10:00)
[2022-12-17] MEDS: NIFEdipine ER 30 MG TAB PO SCH (11:47)
[2022-12-17] MEDS: SPIRONOLACTONE 25 MG TAB PO SCH (11:48)
[2022-12-17] MEDS: SACUBITRIL-VALSARTAN 24mg/26mg TAB PO SCH (11:48)
[2022-12-17] MEDS: PANTOPRAZOLE 40 MG/10 ML VIAL INJ IV SCH (11:51)
[2022-12-17] MEDS: hydrALAZINE HCL 20 MG/ML VL IV PRN (12:33)
[2022-12-17] MEDS: FUROSEMIDE 40 MG/4 ML VIAL IV SCH (17:43)
[2022-12-18] VITALS (7 sets, daily range): BP systolic 102–122; BP diastolic 56–122; PULSE 90–107; RESP 18–22; TEMP 97.4–98.5; O2SAT 90–98
[2022-12-18] MEDS: FUROSEMIDE 40 MG/4 ML VIAL IV SCH ×2 (05:25→17:37)
[2022-12-18] MEDS: NIFEdipine ER 30 MG TAB PO SCH (09:19)
[2022-12-18] MEDS: SACUBITRIL-VALSARTAN 24mg/26mg TAB PO SCH (09:19)
[2022-12-18] MEDS: PANTOPRAZOLE 40 MG/10 ML VIAL INJ IV SCH (09:19)
[2022-12-18] MEDS: SPIRONOLACTONE 25 MG TAB PO SCH (09:20)
[2022-12-18] MEDS: ENOXAPARIN SOD 40 MG/0.4 ML SYRINGE SC SCH (09:20)
[2022-12-19 05:00] VITALS: BP 101/64; PULSE 98; RESP 22; TEMP 98; O2SAT 92
[2022-12-19 06:10] LABS: Chloride 104 mmol/L (98-107); Potassium 3.9 mmol/L (3.5-5.1); Sodium 138 mmol/L (136-145)
[2022-12-19 06:11] LABS: Anion Gap 9 (5-15); Calcium 9.3 mg/dL (8.7-10.4); Carbon Dioxide 25 mmol/L (20-30)
[2022-12-19] MEDS: FUROSEMIDE 40 MG/4 ML VIAL IV SCH (06:12)
[2022-12-19 06:16] LABS: BUN/Creatinine Ratio 17.5 (10.0-20.0); Blood Urea Nitrogen 21 mg/dL (9-23); Glucose 122 mg/dL (74-106)
[2022-12-19 08:00] VITALS: PULSE 92; RESP 18; O2SAT 98
[2022-12-19 08:19] VITALS: BP 130/78; PULSE 97; RESP 20; TEMP 98.9; O2SAT 97
[2022-12-19] MEDS: PANTOPRAZOLE 40 MG/10 ML VIAL INJ IV SCH (08:54)
[2022-12-19] MEDS: SPIRONOLACTONE 25 MG TAB PO SCH (08:56)
[2022-12-19] MEDS: ENOXAPARIN SOD 40 MG/0.4 ML SYRINGE SC SCH (08:57)
[2022-12-19] MEDS ORDERED: METOPROLOL SUCCINATE XL 50 MG TAB PO SCH (10:00)
[2022-12-19] MEDS ORDERED: SACUBITRIL-VALSARTAN 24mg/26mg TAB PO SCH (10:00)
[2022-12-19 13:00] VITALS: BP 111/79; PULSE 88; RESP 18; TEMP 98.5; O2SAT 95
[2022-12-19] MEDS ORDERED: METO-6 PO (13:35)
[2022-12-19 16:49] VITALS: BP 130/78; PULSE 97; RESP 18; TEMP 36.9; O2SAT 97
[2022-12-19 17:09] VITALS: BP 120/85; PULSE 64; RESP 20; TEMP 97.5; O2SAT 97
== END 2022-12-19 18:11 | disposition home or self-care (01) | DRG 194 ==
LOC: ER 08:15 → TELE 13:17 → TELE-WESTW 22:36 → TELE 23:57 → TELE-WESTW 12-17 05:30
PROVIDERS: ADMIT Nurse Practitioner; ATTEND Nurse Practitioner
DX: I11.0 Hypertensive heart disease with heart failure (principal); I42.8 Other cardiomyopathies; I25.10 Atherosclerotic heart disease of native coronary artery without angina pectoris; I50.23 Acute on chronic systolic (congestive) heart failure; I07.1 Rheumatic tricuspid insufficiency; F15.10 Other stimulant abuse, uncomplicated; Z87.442 Personal history of urinary calculi; Z83.3 Family history of diabetes mellitus; Z79.84 Long term (current) use of oral hypoglycemic drugs; Z79.899 Other long term (current) drug therapy; Z91.148 Patient's other noncompliance with medication regimen for other reason
CPT/HCPCS: 36415; 71045; 71275; 80048; 80053; 81001; 83880; 84484; 85025; 85379; 93005; 93306; C9113; G0378

== ENCOUNTER 2023-03-03 03:59 | Emergency (ER) | payer MEDICAID ==
[~2023-03-03] VITALS: Ht 180.3 cm; Wt 103.1 kg
[~2023-03-03 03:59] MED LIST changes: -CAR3125T PO; -CARV3.1240 PO; +METO-6 PO; -SPIR25TA PO
[2023-03-03 04:05] VITALS: BP 118/73; RESP 18; O2SAT 97
[2023-03-03 04:41] LABS: Chloride 106 mmol/L (98-107); Potassium 4.4 mmol/L (3.5-5.1); Sodium 137 mmol/L (136-145)
[2023-03-03 04:42] LABS: Anion Gap 4 (5-15); Carbon Dioxide 27 mmol/L (20-30)
[2023-03-03 04:43] LABS: Calcium 9.1 mg/dL (8.7-10.4)
[2023-03-03 04:44] LABS: Basophils # (auto) 0 10 ^3/uL (0-0.2); Basophils % (auto) 0.6 % (0.0-2.0); Eosinophils # (auto) 0.5 10 ^3/uL (0-0.8); Eosinophils % (auto) 7.2 % (0.0-7.0); Hematocrit 45.5 % (41.0-53.0); Hemoglobin 15.1 g/dL (13.5-17.5); Lymphocytes # (auto) 2.7 10 ^3/uL (0.4-5.4); Lymphocytes % (auto) 36.8 % (10.0-50.0); Mean Corpuscular Hemoglobin 29.8 pg (28.0-32.0); Mean Corpuscular Hgb Conc. 33.2 g/dL (32.0-36.0); Mean Corpuscular Volume 89.7 fL (80.0-100.0); Monocytes # (auto) 0.8 10 ^3/uL (0-1.3); Monocytes % (auto) 10.1 % (0.0-12.0); Neutrophils # (auto) 3.4 10 ^3/uL (1.6-8.6); Neutrophils % (auto) 45.3 % (37.0-80.0); Nucleated Red Blood Cells % 0.1 %; Red Blood Cells 5.07 10^6/uL (4.5-5.90); Red Cell Distribution Width 14.9 % (11.8-14.3); White Blood Cell 7.5 10^3/uL (4.4-10.8)
[2023-03-03 04:47] LABS: BUN/Creatinine Ratio 16.4 (10.0-20.0); Blood Urea Nitrogen 19 mg/dL (9-23); Glucose 74 mg/dL (74-106)
[2023-03-03 07:17] VITALS: PULSE 97
[2023-03-03] MEDS ORDERED: traMADol HCL 50 MG TAB PO ONE (07:30)
== END 2023-03-03 07:55 | disposition left against medical advice (07) ==
LOC: ER 03:59
DX: R07.89 Other chest pain (principal); F15.10 Other stimulant abuse, uncomplicated; I11.0 Hypertensive heart disease with heart failure; I50.9 Heart failure, unspecified; Z87.442 Personal history of urinary calculi
CPT/HCPCS: 36415; 71045; 80048; 83880; 84484; 85025; 93005

== ENCOUNTER 2024-02-08 12:08 | Emergency (ER) | payer MEDICAID ==
[~2024-02-08] VITALS: Ht 180.3 cm; Wt 96.0 kg
[~2024-02-08 12:08] MED LIST changes: -FUR20T GT; +FURO20TA4 GT; +MECL12.586 PO; -MECL1TAB31 PO
--- NOTE | 2024-02-08 12:38 | ED.PDOC ---
SOB-HPI HPI Comments 43Y M with PMHx CHF and HTN presents to ED for chief complaint SOB x3days. Additional symptoms include cough and n/v/d. Pt has been taking AlkaSeltzer at home. Per pt, he ran out of his Lasix and Carvedilol because the medications fell out of his backpack. Pt has not taken Lasix for 2 weeks. Chief Complaint: Shortness of Breath Time Seen by MD: 12:20 Primary Care Provider: UNKNOWN Reviewed notes: Nurses Notes, Medications, Allergies Information Source: Patient Mode of Arrival: Ambulatory Severity: Moderate Timing: Days Duration: Since onset Context: At Rest PE Risk Factors: None History of: CHF Modifying Factors: Nothing Associated Signs and Symptoms: Cough, Other Past Medical History PAST MEDICAL HISTORY: CHF, Gallstones, HTN, Kidney Stones Surgical History: Denies all surgeries Family History Family History: Family hx of DM Social History Smoker: Non-Smoker Alcohol: Denies ETOH Use Drugs: Marijuana, Methamphetamine Lives In: Home Constitutional: denies: chills, diaphoresis, fatigue, fever, malaise, sweats, weakness, others EENTM: denies: blurred vision, double vision, ear bleeding, ear discharge, ear drainage, ear pain, ear ringing, eye pain, eye redness, hearing loss, mouth pain, mouth swelling, nasal discharge, nose bleeding, nose congestion, nose pain, photophobia, tearing, throat pain, throat swelling, voice changes, others Respiratory: reports: cough, shortness of breath; denies: hemoptysis, orthopnea, SOB at rest, SOB with excertion, stridor, wheezing, others Cardiovascular: denies: chest pain, dizzy spells, diaphoresis, Dyspnea on exertion, edema, irregular heart beat, left arm pain, lightheadedness, pal pitations, PND, syncope, others Gastrointestinal: reports: diarrhea, nausea, vomiting; denies: abdomen distended, abdominal pain, blood streaked bowels, constipated, dysphagia, difficulty swallowing, hematemesis, melena, poor appetite, poor fluid intake, rectal bleeding, rectal pain, others Genitourinary: denies: burning, dysuria, flank pain, frequency, hematuria, incontinence, penile discharge, penile sore, pain, testicle pain, testicle swelling, urgency, others Neurological: denies: dizziness, fainting, headache, left sided numbness, left sided weakness, numbness, paresthesia, pre-existing deficit, right sided numbness, right sided weakness, seizure, speech problems, tingling, tremors, weakness, others Musculoskeletal: denies: back pain, gout, joint pain, joint swelling, muscle pain, muscle stiffness, neck pain, others Integumetry: denies: bruises, change in color, change in hair/nails, dryness, laceration, lesions, lumps, rash, wounds, others Allergic/Immunocompromised: denies: Difficulty Healing, Frequent Infections, Hives, Itching, others Hematologic/Lymphatic: denies: anemia, blood clots, easy bleeding, easy bruising, swollen glands, others Endocrine: denies: excessive hunger, excessive sweating, excessive thirst, excessive urination, flushing, intolerance to cold, intolerance to heat, unexplained weight gain, unexplained weight loss, others Psychiatric: denies: anxiety, bipolar disorder, depression, hopeless, panic disorder, schizophrenia, sleepless, suicidal, others All Other Systems: Reviewed and Negative Physical Exam General Appearance: No Apparent Distress, Normal HEENT: Normal ENT Inspection, Pharynx Normal, TMs Normal Neck: Full Range of Motion, Non-Tender, Normal, Normal Inspection Respiratory: Chest Non-Tender, Lungs Clear, No Accessory Muscle Use, No Respiratory Distress, Normal Breath Sounds Cardiovascular: No Edema, No JVD, No Murmur, No Gallop, Normal Peripheral Pulses, Regular Rate/Rhythm Breast Exam: Deferred Gastrointestinal: No Organomegaly, Non Tender, No Pulsatile Mass, Normal Bowel Sounds, Soft Genitalia: Deferred Pelvic: Deferred Rectal: Deferred Extremities: No calf tenderness, Normal capillary refill, Normal inspection, Normal range of motion, Non-tender, No pedal edema Musculoskeletal : Apperance: Normal Neurologic: Alert, dethistler operator II-XII nml as Tested, No Motor Deficits, Normal Affect, Normal Mood, No Sensory Deficits Cerebellar Function: NOT DONE Reflexes: NOT DONE Skin: Dry, Normal Color, Warm Lymphatic: No Adenopathy Was a procedure done? Was a procedure done?: No Differential Dx Differential Diagnosis: Bronchitis, CHF, Pneumonia, URI X-Ray, Labs, Meds, VS Vital Signs Date Time Temp Pulse Resp B/P (MAP) Pulse Ox O2 Delivery O2 Flow Rate FiO2 12/28/24 18:19 97.9 92 16 125/91 (102) 99 97.9 02/08/24 17:07 114/78 02/08/24 17:00 99 16 99 Room Air* 0 21 02/08/24 17:00 98.1 99 16 114/78 (90) 99 98.1 02/08/24 12:21 20 100 Room Air* 0 21 02/08/24 12:17 106 02/08/24 12:16 97.9 74 20 157/99 (118) 100 Lab Test 02/08/24 15:56 02/08/24 14:49 02/08/24 12:49 Range/Units Troponin I High Sensitivity 28 27 29 </=54 ng/L White Blood Count 8.0 4.4-10.8 10^3/uL Red Blood Count 5.24 4.5-5.90 10^6/uL Hemoglobin 16.6 13.5-17.5 g/dL Hematocrit 49.5 41.0-53.0 % Mean Corpuscular Volume 94.6 80.0-100.0 fL Mean Corpuscular Hemoglobin 31.7 28.0-32.0 pg Mean Corpuscular Hemoglobin Concent 33.5 32.0-36.0 g/dL Red Cell Distribution Width 14.1 11.8-14.3 % Platelet Count 188 140-450 10^3/uL Mean Platelet Volume 8.8 6.9-10.8 fL Neutrophils (%) (Auto) 79.3 37.0-80.0 % Lymphocytes (%) (Auto) 12.6 10.0-50.0 % Monocytes (%) (Auto) 6.1 0.0-12.0 % Eosinophils (%) (Auto) 1.6 0.0-7.0 % Basophils (%) (Auto) 0.4 0.0-2.0 % Neutrophils # (Auto) 6.3 1.6-8.6 10 ^3/uL Lymphocytes # (Auto) 1.0 0.4-5.4 10 ^3/uL Monocytes # (Auto) 0.5 0-1.3 10 ^3/uL Eosinophils # (Auto) 0.1 0-0.8 10 ^3/uL Basophils # (Auto) 0 0-0.2 10 ^3/uL Nucleated Red Blood Cells 0.1 % Sodium Level 140 136-145 mmol/L Potassium Level 4.3 3.5-5.1 mmol/L Chloride Level 107 98-107 mmol/L Carbon Dioxide Level 25 20-31 mmol/L Anion Gap 8 5-15 Blood Urea Nitrogen 19 9-23 mg/dL Creatinine 1.33 H 0.700-1.30 mg/dL Glomerular Filtration Rate Calc 68 >90 mL/min BUN/Creatinine Ratio 14.3 10.0-20.0 Serum Glucose 137 H 74-106 mg/dL Calcium Level 9.6 8.7-10.4 mg/dL B-Type Natriuretic Peptide 2906.34 0-100 pg/mL Current Medications Medications (Trade) Dose Ordered Sig/Wesley Route Start Time Stop Time Status Last Admin Furosemide (Lasix Injection) 40 mg ONCE ONCE IV 02/08/24 16:15 02/08/24 16:36 DC 02/08/24 17:07 [place] [id number] Ph: [phone] DIAGNOSTIC IMAGING Diagnostic Imaging Report : [id number] Signed PATIENT: RACHEAL CRUZ ACCT: [id number] UNIT: [id number] : 1980 LOC: ER ROOM / BED: / AGE / SEX: 43 / M ADM STATUS: REG ER SERVICE 21 ORDERING PHYSICIAN: CHARLIE JOHNSON MD PROCEDURE(s): CXR2 - CHEST TWO VIEWS ROUTINE REASON: cough, sob ORDER NUMBER(s): [id number], ACCESSION NUMBER(s): [id number] CHEST RADIOGRAPH Indication: cough, sob Technique: Frontal and lateral view of the chest was obtained Comparison: CXR2 on DOS: 03/18/22, CHEST TWO VIEWS ROUTINE on DOS: 03/18/22, CXR2 on DOS: 03/18/22, CHEST TWO VIEWS ROUTINE on DOS: 03/18/22, CHEST TWO VIEWS ROUTINE on DOS: 11/05/21 FINDINGS: Lines and Tubes: None Lungs: Clear Pleura: No effusion. No pneumothorax. Cardiomediastinal contours: Unremarkable Bones: Unremarkable IMPRESSION: 1. Borderline cardiomegaly 2. No infiltrates ATED BY: WALESKA BEASLEY MD DICTATED DATE/TIME: 02/08/24 1300 SIGNED BY: WALESKA BEASLEY MD SIGNED DATE/TIME: 02/08/24 1300 CC: Time of 1ST Reevaluation: 12:50 Reevaluation 1ST: Unchanged Patient Education/Counseling: Diagnosis, Treatment Family Education/Counseling: No Family Present Departure 1 Departure Time of Disposition: 19:00 (Patient with worsening shortness of breath concerning for CHF exacerbation. We will admit patient for further workup) Impression: Primary Impression: Acute on chronic systolic (congestive) heart failure Additional Impression: Dyspnea Qualified Codes: R06.02 - Shortness of breath Disposition: ADMITTED INPATIENT Admit to: Med Surg Condition: Serious Critical Care Note Critical Care Time?: No Stability Stability form required: No Heart Score Heart Score: Heart Score Response (Comments) Value History N/A 0 EKG N/A 0 Age N/A 0 Risk Factors N/A 0 Troponin N/A 0 Total 0 I personally scribed for CHARLIE JOHNSON MD ([facility] on 02/08/24 at 12:38. Electronically submitted by Maria D Griffin ([employer]). I personally scribed for CHARLIE JOHNSON MD ([email or web address]) on 02/08/24 at 15:29. Electronically submitted by Maria D Griffin ([email or web address]). CHARLIE JOHNSON MD Feb 08, 2024 12:38
--- NOTE | 2024-02-08 13:02 | DVH ---
CHEST RADIOGRAPH Indication: cough, sob Technique: Frontal and lateral view of the chest was obtained Comparison: CXR2 on DOS: 03/18/22, CHEST TWO VIEWS ROUTINE on DOS: 03/18/22, CXR2 on DOS: 03/18/22, CHEST T WO VIEWS ROUTINE on DOS: 03/18/22, CHEST TWO VIEWS ROUTINE on DOS: 11/05/21 FINDINGS: Lines and Tubes: None Lungs: Clear Pleura: No effusion. No pneumothorax. Cardiomediastinal contours: Unremarkable Bones: Unremarkable IMPRESSION: 1. Borderline cardiomegaly 2. No infiltrates
[2024-02-08 13:15] LABS: Basophils # (auto) 0 10 ^3/uL (0-0.2); Basophils % (auto) 0.4 % (0.0-2.0); Eosinophils # (auto) 0.1 10 ^3/uL (0-0.8); Eosinophils % (auto) 1.6 % (0.0-7.0); Hematocrit 49.5 % (41.0-53.0); Hemoglobin 16.6 g/dL (13.5-17.5); Lymphocytes % (auto) 12.6 % (10.0-50.0); Mean Corpuscular Hemoglobin 31.7 pg (28.0-32.0); Mean Corpuscular Hgb Conc. 33.5 g/dL (32.0-36.0); Mean Corpuscular Volume 94.6 fL (80.0-100.0); Monocytes # (auto) 0.5 10 ^3/uL (0-1.3); Monocytes % (auto) 6.1 % (0.0-12.0); Neutrophils # (auto) 6.3 10 ^3/uL (1.6-8.6); Neutrophils % (auto) 79.3 % (37.0-80.0); Nucleated Red Blood Cells % 0.1 %; Platelet Count (auto) 188 10^3/uL (140-450); Red Blood Cells 5.24 10^6/uL (4.5-5.90); Red Cell Distribution Width 14.1 % (11.8-14.3)
[2024-02-08 13:24] LABS: Chloride 107 mmol/L (98-107); Potassium 4.3 mmol/L (3.5-5.1); Sodium 140 mmol/L (136-145)
[2024-02-08 13:25] LABS: Anion Gap 8 (5-15); Calcium 9.6 mg/dL (8.7-10.4); Carbon Dioxide 25 mmol/L (20-31)
[2024-02-08 13:30] LABS: BUN/Creatinine Ratio 14.3 (10.0-20.0); Blood Urea Nitrogen 19 mg/dL (9-23)
[2024-02-08 13:39] LABS: Glucose 137 mg/dL (74-106)
[2024-02-08 17:00] VITALS: PULSE 99; RESP 16; O2SAT 99
[2024-02-08] MEDS: FUROSEMIDE 40 MG/4 ML VIAL IV ONE (17:07)
[2024-02-08 18:19] VITALS: BP 125/91; PULSE 92; RESP 16; TEMP 97.9; O2SAT 99
[2024-02-08] MEDS ORDERED: ONDANSETRON HCL 4 MG/2 ML VIAL IV PRN (21:30)
[2024-02-08] MEDS ORDERED: ACETAMINOPHEN 325 MG TAB PO PRN (21:30)
[2024-02-08] MEDS ORDERED: DOCUSATE SOD 100 MG CAP PO PRN (21:30)
[2024-02-08] MEDS ORDERED: DEXTROSE (50%) 50ML SYRG IV PRN (21:30)
[2024-02-08] MEDS ORDERED: HYDROcodone-ACET 5/325MG TAB PO PRN (21:30)
[2024-02-08] MEDS ORDERED: CARVEDILOL 3.125 MG TAB PO SCH (22:00)
[2024-02-08] MEDS ORDERED: ACCU-CHEK COMFORT CURVE STRIP VI SCH (22:00)
[2024-02-08] MEDS ORDERED: InsuLIN REG 1unit/0.01ml Soln (100units/ml) SC SCH (22:00)
[2024-02-08] MEDS ORDERED: SODIUM CHLOR 0.9% PF (SALINE LOCK) 10ML VIAL/SYR IV SCH (22:00)
[2024-02-09] MEDS ORDERED: FUROSEMIDE 40 MG/4 ML VIAL IV SCH (10:00)
[2024-02-09] MEDS ORDERED: ASPirin 81 mg TAB PO SCH (10:00)
--- NOTE | 2024-02-11 12:39 | ECG ---
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
== END 2024-02-08 22:51 | disposition left against medical advice (07) ==
LOC: ER 12:08
DX: I11.0 Hypertensive heart disease with heart failure (principal); I50.9 Heart failure, unspecified; R06.00 Dyspnea, unspecified; R11.2 Nausea with vomiting, unspecified; R19.7 Diarrhea, unspecified
CPT/HCPCS: 36415; 71046; 80048; 83880; 84484; 85025; 93005; 96374; 99285; J1940

== ENCOUNTER 2024-02-10 04:04 | Emergency (ER) | payer MEDICAID ==
[~2024-02-10] VITALS: Ht 180.3 cm; Wt 95.4 kg
--- NOTE | 2024-02-10 04:37 | ED.PDOC ---
SOB-HPI HPI Comments 43 year old male brought in by EMS presents to the ED with a chief complaint of shortness of breath onset 4 days. Per EMS arrival BP was 115/80. HR 99, BS 112, O2 sat 98% on RA. Patient states he was seen in the ED yesterday, was told he had Pulmonary Embolism but decided to go home prior to admission. Patient noticed his shortness of breath worsen today. PMHx of HTN, CHF, gallstones, kidney stones. Chief Complaint: Shortness of Breath Time Seen by MD: 04:29 Primary Care Provider: UNKNOWN Reviewed notes: Medications, Allergies Information Source: Patient, Emergency Med Personnel Mode of Arrival: EMS Severity: Moderate Timing: Days Duration: Since onset Context: At Rest PE Risk Factors: None History of: CHF Prehospital treatment: 12 Lead EKG Modifying Factors: Laying flat Associated Signs and Symptoms: Chest Pain Quality: Pressure Radiation: No Radiation Past Medical History PAST MEDICAL HISTORY: CHF, Gallstones, HTN, Kidney Stones Surgical History: Denies all surgeries Family History Family History: Family hx of DM Social History Smoker: Non-Smoker Alcohol: Denies ETOH Use Drugs: Marijuana, Methamphetamine Lives In: Home Constitutional: denies: chills, diaphoresis, fatigue, fever, malaise, sweats, weakness, others EENTM: denies: blurred vision, double vision, ear bleeding, ear discharge, ear drainage, ear pain, ear ringing, eye pain, eye redness, hearing loss, mouth pain, mouth swelling, nasal discharge, nose bleeding, nose congestion, nose pain, photophobia, tearing, throat pain, throat swelling, voice changes, others Respiratory: reports: shortness of breath; denies: cough, hemoptysis, or thopnea, SOB at rest, SOB with excertion, stridor, wheezing, others Cardiovascular: reports: chest pain; denies: dizzy spells, diaphoresis, Dyspnea on exertion, edema, irregular heart beat, left arm pain, lightheadedness, palpitations, PND, syncope, others Gastrointestinal: denies: abdomen distended, abdominal pain, blood streaked bowels, constipated, diarrhea, dysphagia, difficulty swallowing, hematemesis, melena, nausea, poor appetite, poor fluid intake, rectal bleeding, rectal pain, vomiting, others Genitourinary: denies: burning, dysuria, flank pain, frequency, hematuria, incontinence, penile discharge, penile sore, pain, testicle pain, testicle swelling, urgency, others Neurological: denies: dizziness, fainting, headache, left sided numbness, left sided weakness, numbness, paresthesia, pre-existing deficit, right sided numbness, right sided weakness, seizure, speech problems, tingling, tremors, we akness, others Musculoskeletal: denies: back pain, gout, joint pain, joint swelling, muscle pain, muscle stiffness, neck pain, others Integumetry: denies: bruises, change in color, change in hair/nails, dryness, laceration, lesions, lumps, rash, wounds, others Allergic/Immunocompromised: denies: Difficulty Healing, Frequent Infections, Hives, Itching, others Hematologic/Lymphatic: denies: anemia, blood clots, easy bleeding, easy bruising, swollen glands, others Endocrine: denies: excessive hunger, excessive sweating, excessive thirst, excessive urination, flushing, intolerance to cold, intolerance to heat, unexplained weight gain, unexplained weight loss, others Psychiatric: denies: anxiety, bipolar disorder, depression, hopeless, panic disorder, schizophrenia, sleepless, suicidal, others All Other Systems: Reviewed and Negative Physical Exam General Appearance: No Apparent Distress, Normal HEENT: Normal ENT Inspection, Pharynx Normal, TMs Normal Neck: Full Range of Motion, Non-Tender, Normal, Normal Inspection Respiratory: Chest Non-Tender, Lungs Clear, No Accessory Muscle Use, No Respiratory Distress, Normal Breath Sounds Cardiovascular: No Edema, No JVD, No Murmur, No Gallop, Normal Peripheral Pulses, Regular Rate/Rhythm Breast Exam: Deferred Gastrointestinal: No Organomegaly, Non Tender, No Pulsatile Mass, Normal Bowel Sounds, Soft Genitalia: Deferred Pelvic: Deferred Rectal: Deferred Extremities: No calf tenderness, Normal capillary refill, Normal inspection, Normal range of motion, Non-tender, No pedal edema Musculoskeletal : Apperance: Normal Neurologic: Alert, material expediter II-XII nml as Tested, No Motor Deficits, Normal Affect, Normal Mood, No Sensory Deficits Cerebellar Function: Normal Reflexes: Normal Skin: Dry, Normal Color, Warm Lymphatic: No Adenopathy Was a procedure done? Was a procedure done?: No Differential Dx Differential Diagnosis: Asthma, Bronchitis, CHF, COPD, Myocardial infarction, Pneumonia, Pneumothorax, Other X-Ray, Labs, Meds, VS Vital Signs Date Time Temp Pulse Resp B/P (MAP) Pulse Ox O2 Delivery O2 Flow Rate FiO2 02/10/24 05:33 86 16 119/86 (97) 98 02/10/24 04:57 121/85 02/10/24 04:43 94 27 98 Room Air* 0 21 02/10/24 04:42 98.3 94 27 121/85 (97) 98 98.3 02/10/24 04:11 97 02/10/24 04:08 98.4 102 16 115/72 (86) 98 Current Medications Medications (Trade) Dose Ordered Sig/Wesley Route Start Time Stop Time Status Last Admin Furosemide (Lasix Tablet) 20 mg ONCE ONCE PO 02/10/24 04:45 02/10/24 04:46 DC 02/10/24 04:57 Spironolactone (Aldactone) 50 mg ONCE ONCE PO 02/10/24 04:45 02/10/24 04:46 DC 02/10/24 04:56 Time of 1ST Reevaluation: 04:59 Reevaluation 1ST: Improved Time of 2ND Reevaluation: 06:00 Reevaluation 2ND: Improved Patient Education/Counseling: Diagnosis, Treatment, Prognosis Family Education/Counseling: No Family Present Departure 1 Departure Time of Disposition: 06:00 Impression: Primary Impression: Chronic congestive heart failure Additional Impression: Methamphetamine abuse Disposition: 01 HOME / SELF CARE / HOMELESS Condition: Stable e-Prescriptions Empagliflozin (Jardiance) 25 Mg Tab 25 MG PO DAILY for 90 Days, #90 TAB Prov: CLAUDY CASAS MD 02/10/24 Spironolactone (Spironolactone) 100 Mg Tab 1 TAB PO DAILY for 90 Days, #90 TAB 3 Refills Prov: CLAUDY CASAS MD 02/10/24 Furosemide (Lasix) 20 Mg Tb 1 TAB PO DAILY for 90 Days, #90 TAB 1 Refill Prov: CLAUDY CASAS MD 02/10/24 Discharged With: Self Critical Care Note Critical Care Time?: No Stability Stability form required: No Heart Score Heart Score: Heart Score Response (Comments) Value History Slightly Suspicious 0 EKG Normal 0 Age <45 0 Risk Factors 1 or 2 risk factors 1 Troponin Normal limit 0 Total 1 I personally scribed for CLAUDY CASAS MD ([email or web address]) on 02/10/24 at 04:37. Electronically submitted by Chata Jack ([email or web address]). CLAUDY CASAS MD Feb 10, 2024 04:37
[2024-02-10 04:42] VITALS: TEMP 98.3
[2024-02-10 04:43] VITALS: PULSE 94; RESP 27; O2SAT 98
--- NOTE | 2024-02-10 04:44 | ECG ---
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
[2024-02-10] MEDS ORDERED: SPIR100T4 PO (04:46)
[2024-02-10] MEDS ORDERED: EMPA1TAB3 PO (04:46)
[2024-02-10] MEDS ORDERED: FURO1TAB33 PO (04:46)
[2024-02-10] MEDS: SPIRONOLACTONE 25 MG TAB PO ONE (04:56)
[2024-02-10] MEDS: FUROSEMIDE 20 MG TAB PO ONE (04:57)
[2024-02-10 05:33] VITALS: BP 119/86; PULSE 86; RESP 16; O2SAT 98
== END 2024-02-10 05:34 | disposition home or self-care (01) ==
LOC: EDBD 04:04 → ER 04:04
DX: I11.0 Hypertensive heart disease with heart failure (principal); I50.9 Heart failure, unspecified; F15.10 Other stimulant abuse, uncomplicated; F12.90 Cannabis use, unspecified, uncomplicated; Z87.442 Personal history of urinary calculi
CPT/HCPCS: 93005

== ENCOUNTER 2024-03-17 09:44 | Emergency (ER) | payer MEDICAID, OTHER ==
[~2024-03-17] VITALS: Ht 175.3 cm; Wt 77.2 kg
[2024-03-17 09:44] VITALS: PULSE 100; RESP 18; O2SAT 100
[~2024-03-17 09:44] MED LIST changes: +EMPA1TAB3 PO; +FURO1TAB33 PO; +SPIR100T4 PO
[2024-03-17] MEDS ORDERED: AMOX500T86 PO (12:01)
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
[2024-03-17] MEDS: TETANUS-DIPTH-ACEL PERTUSSIS 0.5ML SYR Tdap IM ONE (12:16)
[2024-03-17] MEDS: cefTRIAXone SOD 1,000 MG VL IM ONE (12:16)
[2024-03-17 12:26] VITALS: BP 137/87; PULSE 97; RESP 18; TEMP 98.7; O2SAT 100
== END 2024-03-17 12:32 | disposition home or self-care (01) ==
LOC: ER 09:44 → EDBD 09:44 → ER 12:31
DX: S01.511A Laceration without foreign body of lip, initial encounter (principal); F12.90 Cannabis use, unspecified, uncomplicated; F15.90 Other stimulant use, unspecified, uncomplicated; I11.0 Hypertensive heart disease with heart failure; I50.89 Other heart failure; Z79.899 Other long term (current) drug therapy; X58.XXXA Exposure to other specified factors, initial encounter; Y93.89 Activity, other specified; Y92.89 Other specified places as the place of occurrence of the external cause; Y99.8 Other external cause status
CPT/HCPCS: 12013; 90471; 90715; 96372; 99284; J0696

== ENCOUNTER 2024-06-10 19:24 | Emergency (ER) | payer MEDICAID, OTHER ==
[~2024-06-10] VITALS: Ht 180.3 cm; Wt 79.6 kg
[~2024-06-10 19:24] MED LIST changes: +AMOX500T86 PO
[2024-06-10 20:51] VITALS: BP 118/66; PULSE 61; RESP 16; TEMP 98.6; O2SAT 97
[2024-06-10] MEDS ORDERED: IBUP-1456 PO (20:52)
[2024-06-10] MEDS ORDERED: BACDST PO (20:52)
--- NOTE | 2024-06-10 20:52 | ED.PDOC ---
History of Present Illness(SKN HPI Comments 43-year-old male presents to ER with complaints of insect bite x2 days. Patient reports that he was bit by an unknown type of insect on his left buttock two days ago while doing yard work and has since been experiencing pain/swelling/redness to left buttock. He rates his current pain a 5/10 to left buttock without radiation. Denies use of medications for current symptoms. Patient presents to ER ambulatory on arrival, with steady gait, in no distress. Denies fever, body aches, chills, night sweats, nausea/vomiting, skin drainage, numbness/tingling or any further symptoms/complaints Chief Complaint: Animal Bite Time Seen by MD: 19:47 Primary Care Provider: UNKNOWN History of Present Illness: Nurses Notes, Medications, Allergies Allergies: Coded Allergies: NO KNOWN ALLERGIES (Unverified , 09/19/14) Home Meds Active Scripts Ibuprofen (Ibuprofen) 800 Mg Tab, 1 TAB PO TID PRN, #30 TAB 0 Refills Prov:NICOL HERNANDEZ 06/10/24 Sulfamethoxazole W/Trimethopri (Bactrim Ds Tablet) 1 Tab Tb, 1 TAB PO BID for 7 Days, #14 TAB 0 Refills Prov:NICOL HERNANDEZ 06/10/24 Amoxicillin & Pot Clavulanate (Augmentin) 500 Mg Tab, 1 TAB PO BID for 10 Days, #20 TAB Prov:JERRELL LOUISE MD 03/17/24 Empagliflozin (Jardiance) 25 Mg Tab, 25 MG PO DAILY for 90 Days, #90 TAB Prov:CLAUDY CASAS MD 02/10/24 Spironolactone (Spironolactone) 100 Mg Tab, 1 TAB PO DAILY for 90 Days, #90 TAB 3 Refills Prov:CLAUDY CASAS MD 02/10/24 Furosemide (Lasix) 20 Mg Tb, 1 TAB PO DAILY for 90 Days, #90 TAB 1 Refill Prov:CLAUDY CASAS MD 02/10/24 Metoprolol Succinate (Toprol Xl) 50 Mg Tab, 25 MG PO DAILY for 30 Days, #15 TAB Prov:EJ GARAY NP 12/19/22 Spironolactone (Spironolactone) 25 Mg Tab, 1 TAB PO DAILY for 30 Days, #30 TAB 1 Refill Prov:JOHNNY WALLACE MD 10/11/22 Furosemide (Furosemide) 20 Mg Tab, 40 MG GT DAILY for 30 Days, #60 TAB Prov:JOHNNY WALLACE MD 10/11/22 Empagliflozin (Jardiance) 10 Mg Tab, 10 MG PO DAILY for 20 Days, #20 TAB Prov:JOHNNY WALLACE MD 10/11/22 Ondansetron Odt 4MG Tab (ZOFRAN PO) 4 Mg Tb, 4 MG PO BID for 4 Days, #8 TAB ODT TAB-DISSOLVE IN MOUTH, THEN SWALLOW Prov:JOHNNY WALLACE MD 10/11/22 Meclizine Hcl (Meclizine Hcl) 12.5 Mg Tab, 25 MG PO Q8HPRN PRN for 4 Days, #24 TAB Prov:JOHNNY WALLACE MD 10/11/22 Diclofenac Potassium (Diclofenac Potassium) 50 Mg Tab, 1 TAB PO TIDP for 5 Days, #15 TAB Prov:TAMIE HERNANDEZ MD 02/03/22 Tramadol Hcl (Tramadol Hcl) 50 Mg Tab, 50 MG PO TID for 5 Days, #15 TAB Prov:TAMIE HERNANDEZ MD 02/03/22 Cyclobenzaprine Hcl (Cyclobenzaprine Hcl) 5 Mg Tab, 1 TAB PO TID for 10 Days, #30 TAB Prov:TAMIE HERNANDEZ MD 02/03/22 Empagliflozin (Jardiance) 10 Mg Tab, 10 MG PO DAILY for 30 Days, #30 TAB Prov:EJ GARAY NP 11/09/21 Furosemide (Furosemide) 40 Mg Tab, 1 TAB PO DAILY, #30 TAB 5 Refills Prov:EJ GARAY NP 11/09/21 Sacubitril-Valsartan (Entresto 24-26 mg) 1 Tab Tab, 1 TAB PO BID for 30 Days, #60 TAB Prov:EJ GARAY CLAIMS CUSTOMER SERVICE REPRESENTATIVE 11/09/21 Reported Medications Multiple Vitamins W/ Minerals (Centrum Silver) Silver Tab, 1 TAB PO DAILY, TAB 11/06/21 Diclofenac Sodium (Topical) (Diclofenac Sodium) 1 % Gel, 2-4 GRAMS TOP Q6HPRN PRN for RIGHT SHOULDER PAIN, GEL 11/06/21 Baclofen (Baclofen) 20 Mg Tab, 1 TAB PO TID, #90 TAB 2 Refills 11/06/21 Information Source: Patient Mode of Arrival: Ambulatory Tetanus: UTD Past Medical History PAST MEDICAL HISTORY: CHF, Gallstones, HTN, Kidney Stones Surgical History: Denies all surgeries Family History Family History: Family hx of DM Social History Smoker: Non-Smoker Alcohol: Denies ETOH Use Drugs: Marijuana Lives In: Home Constitutional: denies: chills, diaphoresis, fatigue, fever, malaise, sweats, weakness, others EENTM: denies: blurred vision, double vision, ear bleeding, ear discharge, ear drainage, ear pain, ear ringing, eye pain, eye redness, hearing loss, mouth pain, mouth swelling, nasal discharge, nose bleeding, nose congestion, nose pain, photophobia, tearing, throat pain, throat swelling, voice changes, others Respiratory: denies: cough, hemoptysis, orthopnea, SOB at rest, shortness of breath, SOB with excertion, stridor, wheezing, others Cardiovascular: denies: chest pain, dizzy spells, diaphoresis, Dyspnea on exertion, edema, irregular heart beat, left arm pain, lightheadedness, palpitations, PND, syncope, others Gastrointestinal: denies: abdomen distended, abdominal pain, blood streaked bowels, constipated, diarrhea, dysphagia, difficulty swallowing, hematemesis, melena, nausea, poor appetite, poor fluid intake, rectal bleeding, rectal pain, vomiting, others Genitourinary: denies: burning, dysuria, flank pain, frequency, hematuria, incontinence, penile discharge, penile sore, pain, testicle pain, testicle swelling, urgency, others Neurological: denies: dizziness, fainting, headache, left sided numbness, left sided weakness, numbness, paresthesia, pre-existing deficit, right sided numbness, right sided weakness, seizure, speech problems, tingling, tremors, we akness, others Musculoskeletal: denies: back pain, gout, joint pain, joint swelling, muscle pain, muscle stiffness, neck pain, others Integumetry: reports: others (As stated in HPI) Allergic/Immunocompromised: denies: Difficulty Healing, Frequent Infections, Hives, Itching, others Hematologic/Lymphatic: denies: anemia, blood clots, easy bleeding, easy bruising, swollen glands, others Endocrine: denies: excessive hunger, excessive sweating, excessive thirst, excessive urination, flushing, intolerance to cold, intolerance to heat, unexplained weight gain, unexplained weight loss, others Psychiatric: denies: anxiety, bipolar disorder, depression, hopeless, panic disorder, schizophrenia, sleepless, suicidal, others Physical Exam General Appearance: No Apparent Distress HEENT: PERRL/EOMI Neck: Full Range of Motion, Non-Tender, Normal Respiratory: Chest Non-Tender, Lungs Clear, No Accessory Muscle Use, No Respiratory Distress, Normal Breath Sounds Cardiovascular: No Murmur, No Gallop, Regular Rate/Rhythm Breast Exam: Deferred Gastrointestinal: NOT DONE Genitalia: Deferred Pelvic: Deferred Rectal: Deferred Extremities: Normal capillary refill, Normal range of motion Neurologic: Alert, No Motor Deficits, Normal Affect, Normal Mood, No Sensory Deficits Cerebellar Function: Normal Reflexes: Normal Skin: Dry, Warm, Other (1 cm papule centralized to the left buttock with mild surrounding swelling/erythema/TTP. No fluctuance/drainage/red streaking/foreign body noted) Lymphatic: No Adenopathy Was a procedure done? Was a procedure done?: No Sedation Sedation?: No Differential Diagnosis (INTG) Differential Diagnosis: Abrasion Differential Diagnosis: Abscess Differential Diagnosis: Retained Foreign Body X-Ray, Labs, Meds, VS Vital Signs Date Time Temp Pulse Resp B/P (MAP) Pulse Ox O2 Delivery O2 Flow Rate FiO2 06/10/24 20:51 98.6 61 16 118/66 (83) 97 98.6 06/10/24 20:51 97 Room Air* 0 21 06/10/24 19:54 98.6 61 16 118/66 (83) 97 98.6 Rocephin 1 g IM ordered Advised to alternate warm compresses on/off Advised to follow up in two days for wound check Advised to follow up with PCP in 1-2 days Patient verbalized understanding and agreeable with current plan of care Advised to return to ER immediately if symptoms worsen Time of 1ST Reevaluation: 20:24 Reevaluation 1ST: N/A Patient Education/Counseling: Diagnosis, Treatment, Prognosis, Need For Follow Up Family Education/Counseling: No Family Present Departure 1 Departure Time of Disposition: 20:50 Impression: Primary Impression: Cellulitis of buttock, left Additional Impression: Insect bite Qualified Codes: W57.XXXA - Bitten or stung by nonvenomous insect and other nonvenomous arthropods, initial encounter Disposition: HOME / SELF CARE / HOMELESS Condition: Stable e-Prescriptions Ibuprofen (Ibuprofen) 800 Mg Tab 1 TAB PO TID PRN, #30 TAB 0 Refills Prov: NICOL HERNANDEZ 06/10/24 Sulfamethoxazole W/Trimethopri (Bactrim Ds Tablet) 1 Tab Tb 1 TAB PO BID for 7 Days, #14 TAB 0 Refills Prov: NICOL HERNANDEZ 06/10/24 Discharged With: Self Critical Care Note Critical Care Time?: No Stability Stability form required: No Heart Score Heart Score: Heart Score Response (Comments) Value History N/A 0 EKG N/A 0 Age N/A 0 Risk Factors N/A 0 Troponin N/A 0 Total 0 NICOL HERNANDEZ Jun 10, 2024 20:52
[2024-06-10] MEDS: cefTRIAXone SOD 1,000 MG VL IM ONE (21:01)
== END 2024-06-10 21:03 | disposition home or self-care (01) ==
LOC: ER 19:24
DX: S30.860A Insect bite (nonvenomous) of lower back and pelvis, initial encounter (principal); L03.317 Cellulitis of buttock; I11.0 Hypertensive heart disease with heart failure; I50.9 Heart failure, unspecified; F12.90 Cannabis use, unspecified, uncomplicated; Z79.899 Other long term (current) drug therapy; Z79.84 Long term (current) use of oral hypoglycemic drugs; W57.XXXA Bitten or stung by nonvenomous insect and other nonvenomous arthropods, initial encounter; Y93.89 Activity, other specified; Y92.89 Other specified places as the place of occurrence of the external cause; Y99.8 Other external cause status
CPT/HCPCS: 96372; 99283; J0696

== ENCOUNTER 2024-12-14 00:43 | Emergency (ER) | payer MEDICAID ==
[~2024-12-14] VITALS: Ht 177.8 cm; Wt 81.0 kg
[~2024-12-14 00:43] MED LIST changes: +BACDST PO; +IBUP-1456 PO
--- NOTE | 2024-12-14 01:02 | ED.PDOC ---
GI ASSESSMENT HPI Comments 44-year-old male complains of epigastric pain for the last 4 hours. Pain is sharp and moderate to severe. Associated with nausea. Unprovoked. No known modifying factors. Chief Complaint: Abdominal Pain Time Seen by MD: 00:51 Primary Care Provider: UNKNOWN Allergies: Coded Allergies: NO KNOWN ALLERGIES (Unverified , 09/19/14) Home Meds Active Scripts Diclofenac Sodium (Diclofenac Sodium Ec) 50 Mg Tab, 1 TAB PO BID PRN, #60 TAB 1 Refill Prov:CLAUDY CASAS MD 12/14/24 Dicyclomine Hcl (BENTYL CAPSULE) 10 Mg Cp, 1 CAP PO Q6HPRN PRN, #100 CAP 3 Refills Prov:CLAUDY CASAS MD 12/14/24 Ibuprofen (Ibuprofen) 800 Mg Tab, 1 TAB PO TID PRN, #30 TAB 0 Refills Prov:NICOL HERNANDEZ 06/10/24 Sulfamethoxazole W/Trimethopri (Bactrim Ds Tablet) 1 Tab Tb, 1 TAB PO BID for 7 Days, #14 TAB 0 Refills Prov:NICOL HERNANDEZ 06/10/24 Amoxicillin & Pot Clavulanate (Augmentin) 500 Mg Tab, 1 TAB PO BID for 10 Days, #20 TAB Prov:JERRELL LOUISE MD 03/17/24 Empagliflozin (Jardiance) 25 Mg Tab, 25 MG PO DAILY for 90 Days, #90 TAB Prov:CLAUDY CASAS MD 02/10/24 Spironolactone (Spironolactone) 100 Mg Tab, 1 TAB PO DAILY for 90 Days, #90 TAB 3 Refills Prov:CLAUDY CASAS MD 02/10/24 Furosemide (Lasix) 20 Mg Tb, 1 TAB PO DAILY for 90 Days, #90 TAB 1 Refill Prov:CLAUDY CASAS MD 02/10/24 Metoprolol Succinate (Toprol Xl) 50 Mg Tab, 25 MG PO DAILY for 30 Days, #15 TAB Prov:EJ GARAY NP 12/19/22 Spironolactone (Spironolactone) 25 Mg Tab, 1 TAB PO DAILY for 30 Days, #30 TAB 1 Refill Prov:JOHNNY OLEA MD 10/11/22 Furosemide (Furosemide) 20 Mg Tab, 40 MG GT DAILY for 30 Days, #60 TAB Prov:JOHNNY OLEA MD 10/11/22 Empagliflozin (Jardiance) 10 Mg Tab, 10 MG PO DAILY for 20 Days, #20 TAB Prov:JOHNNY OLEA MD 10/11/22 Ondansetron Odt 4MG Tab (ZOFRAN PO) 4 Mg Tb, 4 MG PO BID for 4 Days, #8 TAB ODT TAB-DISSOLVE IN MOUTH, THEN SWALLOW Prov:JOHNNY OLEA MD 10/11/22 Meclizine Hcl (Meclizine Hcl) 12.5 Mg Tab, 25 MG PO Q8HPRN PRN for 4 Days, #24 TAB Prov:JOHNNY OLEA MD 10/11/22 Diclofenac Potassium (Diclofenac Potassium) 50 Mg Tab, 1 TAB PO TIDP for 5 Days, #15 TAB Prov:TAMIE HERNANDEZ MD 02/03/22 Tramadol Hcl (Tramadol Hcl) 50 Mg Tab, 50 MG PO TID for 5 Days, #15 TAB Prov:TAMIE HERNANDEZ MD 02/03/22 Cyclobenzaprine Hcl (Cyclobenzaprine Hcl) 5 Mg Tab, 1 TAB PO TID for 10 Days, #30 TAB Prov:TAMIE HERNANDEZ MD 02/03/22 Empagliflozin (Jardiance) 10 Mg Tab, 10 MG PO DAILY for 30 Days, #30 TAB Prov:EJ GARAY NP 11/09/21 Furosemide (Furosemide) 40 Mg Tab, 1 TAB PO DAILY, #30 TAB 5 Refills Prov:EJ GARAY NP 11/09/21 Sacubitril-Valsartan (Entresto 24-26 mg) 1 Tab Tab, 1 TAB PO BID for 30 Days, #60 TAB Prov:EJ GARAY NP 11/09/21 Reported Medications Multiple Vitamins W/ Minerals (Centrum Silver) Silver Tab, 1 TAB PO DAILY, TAB 11/06/21 Diclofenac Sodium (Topical) (Diclofenac Sodium) 1 % Gel, 2-4 GRAMS TOP Q6HPRN PRN for RIGHT SHOULDER PAIN, GEL 11/06/21 Baclofen (Baclofen) 20 Mg Tab, 1 TAB PO TID, #90 TAB 2 Refills 11/06/21 Information Source: Patient, Emergency Med Personnel Mode of Arrival: EMS Timing: Hours Duration: Since onset Past Medical History PAST MEDICAL HISTORY: CHF, HTN, Kidney Stones Surgical History: Denies all surgeries Family History Family History: Family hx of DM Social History Smoker: Non-Smoker Alcohol: Denies ETOH Use Drugs: Marijuana Lives In: Home Constitutional: reports: malaise Gastrointestinal: reports: abdominal pain, nausea All Other Systems: Reviewed and Negative Physical Exam General Appearance: Moderate Distress HEENT: Normal ENT Inspection, Pharynx Normal, TMs Normal Neck: Full Range of Motion, Non-Tender, Normal, Normal Inspection Respiratory: Chest Non-Tender, Lungs Clear, No Accessory Muscle Use, No Respiratory Distress, Normal Breath Sounds Cardiovascular: No Edema, No JVD, No Murmur, No Gallop, Normal Peripheral Pulse s, Regular Rate/Rhythm Breast Exam: Deferred Gastrointestinal: Epigastric, Tenderness Genitalia: Deferred Pelvic: Deferred Rectal: Deferred Extremities: No calf tenderness, Normal capillary refill, Normal inspection, Normal range of motion, Non-tender, No pedal edema Musculoskeletal : Apperance: Normal Neurologic: Alert, box gluer II-XII nml as Tested, No Motor Deficits, Normal Affect, Normal Mood, No Sensory Deficits Cerebellar Function: Normal Reflexes: Normal Skin: Dry, Normal Color, Warm Lymphatic: No Adenopathy EKG EKG : Cardiac Rhythm: NSR Block: LBBB Was a procedure done? Was a procedure done?: No GI differential Dx Differential Diagnosis: Cholangitis, Cholecystitis, Gastritis/PUD, Gastroenteritis, GI hemorrhage, Pancreatitis, Food Poisoning, Other X-Ray, Labs, Meds, VS Vital Signs Date Time Temp Pulse Resp B/P (MAP) Pulse Ox O2 Delivery O2 Flow Rate FiO2 12/14/24 03:29 62 14 105/73 (84) 98 12/14/24 02:12 89 14 98 Room Air* 0 21 12/14/24 01:18 97.9 66 14 125/91 (102) 97 97.9 12/14/24 01:18 73 16 125/91 12/14/24 00:51 88 12/14/24 00:43 98.1 81 22 135/93 99 98.1 Lab Test 12/14/24 01:55 12/14/24 00:59 Range/Units Troponin I High Sensitivity 23 23 </=54 ng/L White Blood Count 7.8 4.4-10.8 10^3/uL Red Blood Count 4.95 4.5-5.90 10^6/uL Hemoglobin 15.7 13.5-17.5 g/dL Hematocrit 45.2 41.0-53.0 % Mean Corpuscular Volume 91.3 80.0-100.0 fL Mean Corpuscular Hemoglobin 31.7 28.0-32.0 pg Mean Corpuscular Hemoglobin Concent 34.7 32.0-36.0 g/dL Red Cell Distribution Width 13.7 11.8-14.3 % Platelet Count 206 140-450 10^3/uL Mean Platelet Volume 8.5 6.9-10.8 fL Neutrophils (%) (Auto) 71.8 37.0-80.0 % Lymphocytes (%) (Auto) 19.9 10.0-50.0 % Monocytes (%) (Auto) 6.3 0.0-12.0 % Eosinophils (%) (Auto) 1.7 0.0-7.0 % Basophils (%) (Auto) 0.3 0.0-2.0 % Neutrophils # (Auto) 5.6 1.6-8.6 10 ^3/uL Lymphocytes # (Auto) 1.6 0.4-5.4 10 ^3/uL Monocytes # (Auto) 0.5 0-1.3 10 ^3/uL Eosinophils # (Auto) 0.1 0-0.8 10 ^3/uL Basophils # (Auto) 0 0-0.2 10 ^3/uL Nucleated Red Blood Cells 0.0 % Sodium Level 136 136-145 mmol/L Potassium Level 3.6 3.5-5.1 mmol/L Chloride Level 105 98-107 mmol/L Carbon Dioxide Level 24 20-31 mmol/L Anion Gap 7 5-15 Blood Urea Nitrogen 26 H 9-23 mg/dL Creatinine 1.02 0.700-1.30 mg/dL Glomerular Filtration Rate Calc 93 >90 mL/min BUN/Creatinine Ratio 25.5 H 10.0-20.0 Serum Glucose 164 H 74-106 mg/dL Calcium Level 9.7 8.7-10.4 mg/dL Total Bilirubin 0.7 0.2-1.0 mg/dL Aspartate Amino Transferase (AST) 26 13-40 U/L Alanine Aminotransferase (ALT) 18 7-40 U/L Alkaline Phosphatase 100 46-116 U/L Total Protein 7.8 5.7-8.2 g/dL Albumin 4.5 3.2-4.8 g/dL Lipase 47 12-53 U/L Current Medications Medications (Trade) Dose Ordered Sig/[place] Route Start Time Stop Time Status Last Admin Ondansetron HCl (Zofran) 4 mg ONCE ONCE IV 12/14/24 01:00 12/14/24 01:01 DC 12/14/24 01:17 Hydromorphone HCl (Dilaudid Injection) 1 mg ONCE ONCE IV 12/14/24 01:00 12/14/24 01:01 DC 12/14/24 01:18 [place] [id number] Ph: [phone] DIAGNOSTIC IMAGING Diagnostic Imaging Report : [id number] Signed PATIENT: RACHEAL CRUZ ACCT: [id number] UNIT: [id number] : 1980 LOC: ER ROOM / BED: / AGE / SEX: 44 / M ADM STATUS: REG ER SERVICE ORDERING PHYSICIAN: CLAUDY CASAS MD PROCEDURE(s): GBUS - GALLBLADDER REASON: RUQ pain ORDER NUMBER(s): [id number], ACCESSION NUMBER(s): [id number] INDICATION: RUQ pain TECHNIQUE: Multiple real-time sonographic images were obtained of the right upper quadrant. COMPARISON: None FINDINGS: The liver demonstrates normal homogeneous echotexture without focal mass lesions. The liver measures 13.7 cm. Normal hepatopetal portal venous flow identified. No evidence of pleural effusion or abdominal ascites. There is no intrahepatic or extrahepatic ductal dilatation. The common duct measures 0.5 cm. Gallstones within the gallbladder. The gallbladder wall measures 0.2 cm and is within normal limits. Negative sonographic Cazares's sign. The right kidney measures 10.6 cm. The right kidney is normal in contour, size, and shape. The echogenicity is normal. There is no hydronephrosis. The pancreas is not well visualized due to overlying bowel gas. IMPRESSION: 1. Cholelithiasis without sonographic evidence of acute cholecystitis. ATED BY: JHONY GONCALVES MD DICTATED DATE/TIME: 12/14/24129 SIGNED BY: JHONY GONCALVES MD SIGNED DATE/TIME: 12/14/24129 CC: Time of 1ST Reevaluation: 01:01 Reevaluation 1ST: Unchanged Patient Education/Counseling: Diagnosis, Treatment Family Education/Counseling: No Family Present SEPSIS Sepsis Screen Physician Orders Gallbladder (12/14/24 00:56) Electrocardigram (12/14/24 00:56) Vital Signs Date Time Temp Pulse Resp B/P (MAP) Pulse Ox O2 Delivery O2 Flow Rate FiO2 12/14/24 03:29 62 14 105/73 (84) 98 12/14/24 02:12 89 14 98 Room Air* 0 21 12/14/24 01:18 97.9 66 14 125/91 (102) 97 97.9 12/14/24 01:18 73 16 125/91 12/14/24 00:51 88 12/14/24 00:43 98.1 81 22 135/93 99 98.1 Laboratory Tests Test 12/14/24 00:59 White Blood Count 7.8 10^3/uL (4.4-10.8) Medications Medications Dose Ordered Sig/Wes[place] Route Start Time Stop Time Status Last Admin Dose Admin Hydromorphone HCl 1 mg ONCE ONCE IV 12/14/24 01:00 12/14/24 01:01 DC 12/14/24 01:18 Ondansetron HCl 4 mg ONCE ONCE IV 12/14/24 01:00 12/14/24 01:01 DC 12/14/24 01:17 Departure 1 Departure Time of Disposition: 03:00 Impression: Primary Impression: Gallstones Additional Impression: Methamphetamine abuse Disposition: 01 HOME / SELF CARE / HOMELESS Condition: Stable e-Prescriptions Diclofenac Sodium (Diclofenac Sodium Ec) 50 Mg Tab 1 TAB PO BID PRN, #60 TAB 1 Refill Prov: CLAUDY CASAS MD 12/14/24 Dicyclomine Hcl (BENTYL CAPSULE) 10 Mg Cp 1 CAP PO Q6HPRN PRN, #100 CAP 3 Refills Prov: CLAUDY CASAS MD 12/14/24 Discharged With: Self Critical Care Note Critical Care Time?: No Stability Stability form required: No Heart Score Heart Score: Heart Score Response (Comments) Value History Slightly Suspicious 0 EKG Normal 0 Age <45 0 Risk Factors 1 or 2 risk factors 1 Troponin Normal limit 0 Total 1 I personally scribed for CLAUDY CASAS MD ([email or web address]) on 12/14/24 at 01:58. Electronically submitted by Isiah Olea ([email or web address]). CLAUDY CASAS MD Dec 14, 2024 01:02
[2024-12-14] MEDS: ONDANSETRON HCL 4 MG/2 ML VIAL IV ONE (01:17)
[2024-12-14 01:18] VITALS: TEMP 97.9
[2024-12-14] MEDS: HYDROmorphone HCL 2 MG/ML VL/or syr IV ONE (01:18)
[2024-12-14 01:27] LABS: Hematocrit 45.2 % (41.0-53.0); Hemoglobin 15.7 g/dL (13.5-17.5); Mean Corpuscular Hemoglobin 31.7 pg (28.0-32.0); Mean Corpuscular Volume 91.3 fL (80.0-100.0); Nucleated Red Blood Cells % 0.0 %
--- NOTE | 2024-12-14 01:32 | DVH ---
INDICATION: RUQ pain TECHNIQUE: Multiple real-time sonographic images were obtained of the right upper quadrant. COMPARISON: None FINDINGS: The liver demonstrates normal homogeneous echotexture without focal mass lesions. The liver measures 13.7 cm. Normal hepatopetal portal venous flow identified. No evidence of pleural effusion or abdominal ascites. There is no intrahepatic or extrahepatic ductal dilatation. The common duct measures 0.5 cm. Gallstones within the gallbladder. The gallbladder wall measures 0.2 cm and is within normal limits. Negative sonographic Cazares's sign. The right kidney measures 10.6 cm. The right kidney is normal in contour, size, and shape. The echoge nicity is normal. There is no hydronephrosis. The pancreas is not well visualized due to overlying bowel gas. IMPRESSION: 1. Cholelithiasis without sonographic evidence of acute cholecystitis.
[2024-12-14 01:45] LABS: Alanine Aminotransferase 18 U/L (7-40); Albumin 4.5 g/dL (3.2-4.8); Alkaline Phosphatase 100 U/L (46-116); Anion Gap 7 (5-15); BUN/Creatinine Ratio 25.5 (10.0-20.0); Bilirubin, Total 0.7 mg/dL (0.2-1.0); Calcium 9.7 mg/dL (8.7-10.4); Carbon Dioxide 24 mmol/L (20-31); Chloride 105 mmol/L (98-107); Lipase 47 U/L (12-53); Potassium 3.6 mmol/L (3.5-5.1); Sodium 136 mmol/L (136-145); Total Protein 7.8 g/dL (5.7-8.2)
[2024-12-14 01:48] LABS: Blood Urea Nitrogen 26 mg/dL (9-23); Glucose 164 mg/dL (74-106)
[2024-12-14 02:12] VITALS: PULSE 89; RESP 14; O2SAT 98
[2024-12-14] MEDS ORDERED: DICL50TA4 PO (02:54)
[2024-12-14] MEDS ORDERED: DICY10CA PO (02:54)
[2024-12-14 03:29] VITALS: BP 105/73; PULSE 62; RESP 14; O2SAT 98
--- NOTE | 2024-12-14 07:09 | ECG ---
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
== END 2024-12-14 03:30 | disposition home or self-care (01) ==
LOC: EDBD 00:43 → EDUNIT# 00:43 → ER 00:43
DX: K80.20 Calculus of gallbladder without cholecystitis without obstruction (principal); F15.10 Other stimulant abuse, uncomplicated; I11.0 Hypertensive heart disease with heart failure; I50.9 Heart failure, unspecified; Z79.84 Long term (current) use of oral hypoglycemic drugs; Z79.899 Other long term (current) drug therapy
CPT/HCPCS: 36415; 76705; 80053; 83690; 84484; 85025; 93005; 96374; 96375; 99285; J1171; J2405